=== PATIENT | male | born 1970 | race Caucasian/White ===

== ENCOUNTER 2020-07-26 14:40 | Outpatient (CLI) | payer OTHER, SELFPAY ==
--- NOTE | ~2020-07-26 | CT_ITS ---
EXAMINATION: XR abdomen/kub 1V, CT abdomen pelvis wo con DATE: 07/26/2020 15:12 INDICATION: Right kidney stone TECHNIQUE: 1. Low dose computed tomography (CT) of the abdomen and pelvis to evaluate for genitourinary stones w as performed without intravenous contrast. Automated exposure control and iterative reconstruction te chnique were employed. The dose-length product was 1120.49 mGy-cm. 2. A supine view of the abdomen was obtained on 2 radiographs. COMPARISON: None FINDINGS: Abdomen and pelvis CT: Multiple old healed posterior left rib fractures. Lung bases are clear. Heart size is normal. Atheros clerotic coronary artery calcifications and aortic valve calcification. Calcified left infrahilar lym ph node and a few scattered hepatic and splenic calcifications consistent with old granulomatous dise ase. Cholecystectomy clips at the gallbladder fossa. Likely embolization coils along the tail of the pancreas likely within the splenic artery. Pancreas is unremarkable. Bilateral adrenal glands are nor mal. 2 mm nonobstructing stone at the upper pole calyx of the normal left kidney. No left ureteral st ones or left-sided hydronephrosis. 10 x 6 x 6 mm stone at the junction of the proximal to mid right u reter with moderate right hydroureteronephrosis. There is an additional 1-2 mm stone in the immediate ly more proximal dilated right ureter. There are at least 5 additional stones in the right kidney the next largest measuring 4 mm at the lower pole. Bladder is normal. There is mild colonic diverticulos is with a sigmoid predominance. There is no adjacent inflammatory change to suggest diverticulitis. Small bowel and appendix are normal. No free intraperitoneal gas or fluid. No pathologically enlarged abdominal or pelvic lymphadenopathy. Mild lumbar and mild to moderate lower thoracic spondylosis. Abdomen radiograph(s): The 10 x 6 mm right ureteral stone is clearly visualized on the plain radiograph projecting near the tip of the right L4 transverse process. A few of the smaller stones are seen in the upper and lower r ight kidney IMPRESSION: 1. Bilateral nephrolithiasis with obstructing 10 x 6 mm right ureteral stone with moderate right hydr oureteronephrosis. Reviewed, dictated and finalized at location A. IMPRESSION: 1. Bilateral nephrolithiasis with obstructing 10 x 6 mm right ureteral stone wi th moderate right hydroureteronephrosis.
== END 2020-07-26 14:41 | disposition home or self-care (01) ==
PROVIDERS: PCP Family Medicine; Visit Provider Nurse Practitioner Adult Health
DX: N13.2 Hydronephrosis with renal and ureteral calculous obstruction (principal)
CPT/HCPCS: 74018; 74176

== ENCOUNTER 2020-08-03 00:31 | Outpatient (CLI) | payer OTHER, SELFPAY ==
[2020-08-03 20:23] LABS: SARS-CoV-2 RNA PCR Negative
== END 2020-08-03 00:32 | disposition home or self-care (01) ==
LOC: ANHCOVIDDT 00:32
PROVIDERS: PCP Family Medicine; Visit Provider Urology
DX: Z01.812 Encounter for preprocedural laboratory examination (principal); Z11.59 Encounter for screening for other viral diseases
CPT/HCPCS: 87635; C9803; U0003

== ENCOUNTER 2020-08-04 00:39 | Day surgery (SDC) | payer OTHER, SELFPAY ==
[2020-08-02 12:41] VITALS: BMI 34.9
[2020-08-04] VITALS (7 sets, daily range): BP systolic 118–137; BP diastolic 66–85; PULSE 61–72; RESP 14–18; TEMP 36.4–36.5; O2SAT 99–100
--- NOTE | ~2020-08-04 | XR_ITS ---
EXAMINATION: XR abdomen/kub 1V INDICATION: Right-sided kidney stone TECHNIQUE: Supine views of the abdomen were obtained on 2 radiographs. COMPARISON: 07/26/2020 FINDINGS: There is an approximately 12 mm right ureteral stone projecting just below the right L4 tra nsverse process. A subtle grouping of stones in the right kidney lower pole measuring up to 9 mm pers ists. Also seen is a 5 mm stone of the right kidney upper pole. Cholecystectomy clips are noted. A ca lcification projecting near the cholecystectomy clips is demonstrated to reflect a liver granuloma on the comparison CT. The bowel gas pattern is normal. IMPRESSION: 1. Stable right ureteral stone and right nephrolithiasis. Reviewed, dictated and finalized at location A.
--- NOTE | 2020-08-04 06:12 | ECG_ITS ---
Measurements Intervals [place] Rate: 65 P: 17 VA: 172 QRS: -5 QRSD: 112 T: 33 QT: 407 QTc: 426 Interpretive Statements SINUS RHYTHM INTRAVENTRICULAR CONDUCTION DELAY BORDERLINE ECG Electronically Signed On 08-04-2020 8:06:14 CDT by Sheldon Madison D.O.
[2020-08-04] MEDS: LACTATED RINGERS 1,000 ML 30 ML IV CONT (07:30)
--- NOTE | 2020-08-04 07:45 | WPDHPUPDATE1 ---
History and Physical Update Update Date/Time: 08/04/20 07:45 History and Physical has been reviewed, including an updated exam of the patient. There are NO changes in the patient's condition. Risks, benefits, and alternatives have been discussed and questions answered. Patient agrees to proceed with procedure. Right ureteral stone slightly difficult to see today due to bowel gas. May require cysto with reterograde, stent placement in addition to right ureteral eswl. Discussed with Jayson who agrees to proceed.
[2020-08-04 07:50] LABS: Prothrombin Time 12.8 Seconds (11.1-14.7)
[2020-08-04 07:51] LABS: Partial Thromboplastin Time 29.6 SECONDS (22.3-36.8)
[2020-08-04 07:54] LABS: Anion Gap 6 mmol/L (8-16); Blood Urea Nitrogen 20 mg/dL (9-20); Calcium 9.1 mg/dL (8.4-10.2); Carbon Dioxide 31 mmol/L (22-30); Chloride 104 mmol/L (98-107); Estimated CRCL calculation 126 ml/min; Estimated Glomerular Filt Rate > 60; Glucose 113 mg/dL (75-110); Potassium 4.1 mmol/L (3.4-5.0); Sodium 141 mmol/L (137-145)
--- NOTE | 2020-08-04 08:10 | WPDANESEPPF ---
Anes - Initial Pre Proc Eval Procedure: Operation Date: 08/04/20 08:30 Proposed Procedures p Right Ureteral Extracorporeal Shock Wave Lithotripsy with Possible Stent Placement - Rufino Eastman MD Date/Time: 08/04/20 08:10 Surgeon: Rufino Eastman MD Pre Op Diagnosis: right ureteral stone Patient Data Age: 50 Gender: M Height: 6 ft 3 in Weight: 127.01 kg Allergies Allergy/AdvReac Type Severity Reaction Status Date / Time No Known Allergies Allergy Mild Verified 08/02/20 12:43 Home Medications Medication Instructions Recorded Confirmed Type sertraline 100 mg tablet 100 mg PO DAILY #90 tablet 11/12/19 08/02/20 Rx aripiprazole 10 mg tablet 10 mg PO DAILY #90 tablet 06/08/20 08/02/20 Rx atorvastatin 80 mg tablet 80 mg PO DAILY #30 tablet 06/11/20 08/02/20 Rx sitagliptin 50 mg tablet 50 mg PO DAILY #30 tablet 06/11/20 08/02/20 Rx hydrocodone 5 mg-acetaminophen 325 1 tablet PO Q6H PRN #20 tablet 07/19/20 08/02/20 Rx mg tablet metformin 1,000 mg PO BID 08/02/20 08/02/20 History multivitamin 1 tablet PO DAILY 08/02/20 08/02/20 History glimepiride 2 mg tablet 2 mg PO QAM #90 tablet 08/03/20 Rx Laboratory Tests 08/04/20 08/04/20 07:28 07:28 PT 12.8 Seconds Seconds (11.1-14.7) INR 1.0 APTT 29.6 SECONDS SECONDS (22.3-36.8) Sodium 141 mmol/L mmol/L (137-145) Potassium 4.1 mmol/L mmol/L (3.4-5.0) Chloride 104 mmol/L mmol/L (98-107) Carbon Dioxide 31 mmol/L H mmol/L (22-30) Anion Gap 6 mmol/L L mmol/L (8-16) BUN 20 mg/dL mg/dL (9-20) Creatinine 0.90 mg/dL mg/dL (0.7-1.3) Estim Creat Clear Calc 126 ml/min ml/min Estimated GFR > 60 (59 - ) Glucose 113 mg/dL H mg/dL (75-110) Calcium 9.1 mg/dL mg/dL (8.4-10.2) Patient hx anesthesia problems: none Family hx anesthesia problems: none PMFSH Past Medical History Medical History Benign essential hypertension Bipolar affective, depress, part remis Mixed hyperlipidemia Nephrolithiasis Type 2 diabetes mellitus without complications Family History Family History Other Diabetes mellitus Family history of malignant neoplasm of urinary bladder Social History Social History Smoking status: Never smoker Second hand tobacco smoke exposure: No Alcohol intake: current Drinks per week: 6 Spiritual care concerns: No Anes - Eval Final PreProcedure Day of Procedure 08/04/20 08:10 Patient weight: obese Heart: regular rate and rhythm Lungs: clear to auscultation Airway: Mallampati scale class II Neurological: alert and oriented Last oral intake: >/= 8 hours ASA classification: III Emergent: no Anesthetic plan: proceed Anesthesia type and monitoring: general LMA and standard monitoring Informed Consent: The patient's anesthetic plan and its attendant risks and benefits were discussed with the patient/family/POA. Questions were solicited and answers provided to the satisfaction of the patient/family/POA.
[2020-08-04] MEDS: ceFAZolin 2 GM/D5W 50 ML 2 GM/50 ML BAG IVPB (08:30)
--- NOTE | 2020-08-04 09:09 | PM.PROC ---
Procedure Note - Detailed Date of procedure: 08/04/20 Pre-op diagnosis: right ureteral stone Post-op diagnosis: same Procedure performed: ESWL right ureteral calculus Description of procedure: patient is taken to the operative suite and correctly identified. Once anesthesia was obtained the stone was localized in both planes. Three thousand shocks were given to the stone. There appeared to be good fragmentation. Patient is taken recovery room stable condition. Given the standard post lithotripsy instructions will follow up in about 10 days with KUB. Anesthesia: GLMA Surgeon: Rufino Eastman MD Drains: No Packing: No Pathology: none sent Complications: No immediate complications Condition: stable Disposition: PACU
--- NOTE | 2020-08-04 09:36 | SUR.PHASEI ---
0940- blood glucose 117 at 0935. more awake.
[2020-08-04 09:37] LABS: Glucose Point of Care 117 (65-105)
--- NOTE | 2020-08-04 09:47 | SUR.PHASEI ---
0947- regarding initial skin assessment right flank with some redness to it. mild discomfort in the area.
== END 2020-08-04 10:30 | disposition home or self-care (01) ==
PROVIDERS: Anesthesiology; PCP Family Medicine; Visit Provider Urology
PROC: (CPT 50590; principal; 2020-08-04 08:30)
DX: N20.1 Calculus of ureter (principal); I10 Essential (primary) hypertension; E11.9 Type 2 diabetes mellitus without complications; Z79.84 Long term (current) use of oral hypoglycemic drugs; E78.2 Mixed hyperlipidemia; E66.9 Obesity, unspecified; Z68.35 Body mass index [BMI] 35.0-35.9, adult; F31.75 Bipolar disorder, in partial remission, most recent episode depressed; Z79.899 Other long term (current) drug therapy
CPT/HCPCS: 50590; 36415; 74018; 80048; 85610; 85730; 87635; 93005; C9803; J0131; J0690; J2250; J2405; J2704; J3010; J7120; U0003

== ENCOUNTER → 2020-08-14 15:34 | Outpatient (CLI) | payer OTHER, SELFPAY ==
--- NOTE | ~2020-08-14 | XR_ITS ---
XR abdomen/kub 1V 08/14/2020 16:06 Indication: Right kidney stone Procedure: KUB Comparison: KUB dated 08/04/[address] dated 07/26/2020 Findings: There is a punctate lower pole stone in the right kidney. There are cholecystectomy clips. There is calcified granuloma of the liver adjacent to the cholecystectomy clips. There are surgical c oils in the left upper abdomen. Nonobstructive bowel gas pattern. Mild lumbar spondylosis. Impression: 1: Right nephrolithiasis. Reviewed, dictated and finalized at location B. Impression: 1: Right nephrolithiasis.
== END ==
PROVIDERS: PCP Family Medicine; Visit Provider Nurse Practitioner Adult Health
DX: N20.0 Calculus of kidney (principal)
CPT/HCPCS: 74018

== ENCOUNTER → 2020-08-22 14:03 | Outpatient (CLI) | payer OTHER, SELFPAY ==
--- NOTE | ~2020-08-22 | XR_ITS ---
XR abdomen/kub 1V 08/22/2020 14:30 Indication: Ureteral stones Procedure: KUB Comparison: 07/26/2020 Findings: There are faint right renal stones. No definite ureteral stone. There are cholecystectomy c lips. There is calcified granuloma of the liver parenchyma at the level of the cholecystectomy clips. Mild lumbar spondylosis. Bowel pattern nonobstructive. Surgical coils in the left upper abdomen. Impression: 1: Right nephrolithiasis. Reviewed, dictated and finalized at location A. Impression: 1: Right nephrolithiasis.
--- NOTE | ~2020-08-22 | CT_ITS ---
EXAMINATION: CT abdomen pelvis wo con DATE: 08/22/2020 14:30 INDICATION: Right ureteral stone, difficulty urinating post lithotripsy TECHNIQUE: Computed tomography (CT) of the abdomen and pelvis was performed without intravenous contr ast. The dose-length product (DLP) was 1094.75 mGy-cm. Automated exposure control and iterative recon struction technique were employed. COMPARISON: 07/26/2020 FINDINGS: The lung bases are clear. The heart size is normal. The gallbladder is surgically absent. P unctate calcifications in otherwise normal appearing liver and spleen likely represent healed granulo matous disease. Embolization coils are again noted along the tail of the pancreas, likely within the splenic artery. The pancreas and adrenal glands are normal. The left kidney is unremarkable. There is been interval treatment of the previously described right ureteral stones. No stones or stone fragme nts are identified in the right ureter or the bladder. Hydroureteronephrosis has resolved. There are nonobstructing stones of the right kidney which measure up to 3 mm. No pathologically enlarged abdomi nal or pelvic lymph nodes are identified. There is no free intraperitoneal gas or evidence of bowel o bstruction. Colonic diverticulosis is present without evidence of diverticulitis. Fat-containing ingu inal hernias are noted. Also seen is a tiny fat-containing supraumbilical hernia. There is mild lumba r spondylosis. IMPRESSION: 1. Interval right-sided lithotripsy with resolution of previously described hydroureteronephrosis and no retained stone fragments in the right ureter or bladder. 2. Nonobstructing right nephrolithiasis. Reviewed, dictated and finalized at location A. IMPRESSION: 1. Interval right-sided lithotripsy with resolution of previously described hyd roureteronephrosis and no retained stone fragments in the right ureter or bladd er. 2. Nonobstructing right nephrolithiasis.
== END ==
PROVIDERS: PCP Family Medicine; Visit Provider Urology
DX: N20.0 Calculus of kidney (principal); Z98.890 Other specified postprocedural states
CPT/HCPCS: 74018; 74176

== ENCOUNTER 2022-02-26 07:43 | Outpatient (RCR) | payer OTHER, SELFPAY ==
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
== END 2022-04-23 17:00 | disposition home or self-care (01) ==
LOC: CHSPT 07:43
PROVIDERS: PCP Family Medicine
DX: M48.062 Spinal stenosis, lumbar region with neurogenic claudication (principal)
CPT/HCPCS: 97014; 97110; 97161; 97530; G0283

== ENCOUNTER 2022-06-18 08:55 | Outpatient (RCR) | payer OTHER, SELFPAY ==
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
--- NOTE | 2022-09-17 08:15 | PCPTNOTE ---
mr. vazquez has not been to therapy in over a month. as of this date he will be dc'd from skilled PT services. all progress towards goals will be taken from his most recent evaluation/note. WIL
== END 2022-07-10 23:59 | disposition home or self-care (01) ==
LOC: CHSPT 08:55
PROVIDERS: Visit Provider Physician Assistant Medical
DX: M25.512 Pain in left shoulder (principal); R20.2 Paresthesia of skin
CPT/HCPCS: 97012; 97014; 97110; 97140; 97161; G0283

== ENCOUNTER 2022-07-26 08:00 | Outpatient (CLI) | payer OTHER, SELFPAY ==
--- NOTE | ~2022-07-26 | MR_ITS ---
EXAMINATION: MR cervical spine wo con DATE: 07/26/2022 08:59 INDICATION: Cervical radiculopathy. TECHNIQUE: Magnetic resonance imaging (MRI) of the cervical spine was performed without intravenous c ontrast. Sequences included sagittal T2-weighted FSE, sagittal T2-weighted FS FSE, sagittal T1-weight ed FSE, axial MERGE, and axial T2-weighted FSE. COMPARISON: None FINDINGS: There is 4 degrees dextrocurvature of cervicothoracic spine. There is hypolordosis of cervi florina spine. Vertebral body heights are normal. There is mildly decreased disc height from C3-C4 to C6- C7. Osseous central spinal canal is developmentally small in the cervical spine. The spinal cord sign al intensity is normal. The following disc levels are specifically discussed: C2-C3: The disc does not extend beyond the endplate margin. There is no uncovertebral joint osteoarth ritis. There is mild bilateral facet joint osteoarthritis. There is no neural foraminal stenosis. The re is no central canal stenosis. C3-C4: The disc is bulging. There is mild bilateral uncovertebral joint osteoarthritis. There is mode rate bilateral facet joint osteoarthritis. There is mild bilateral neural foraminal stenosis. There i s mild central canal stenosis with ventral indentation of the spinal cord. C4-C5: The disc is bulging. There is moderate bilateral uncovertebral joint osteoarthritis. There is mild bilateral facet joint osteoarthritis. There is mild right and moderate left neural foraminal scot nosis. There is moderate central canal stenosis with ventral and dorsal indentation of the spinal cor d. C5-C6: The disc is bulging. There is moderate bilateral uncovertebral joint osteoarthritis. There is no facet joint osteoarthritis. There is mild bilateral neural foraminal stenosis. There is moderate c entral canal stenosis with ventral and dorsal indentation of the spinal cord. C6-C7: The disc is bulging with superimposed right central extrusion. There is moderate bilateral unc overtebral joint osteoarthritis. There is moderate bilateral facet joint osteoarthritis. There is mod erate bilateral neural foraminal stenosis. There is moderate central canal stenosis with ventral and dorsal indentation of the spinal cord. C7-T1: The disc does not extend beyond the endplate margin. There is mild right uncovertebral joint o steoarthritis. There is moderate right and severe left facet joint osteoarthritis. There is mild bila teral neural foraminal stenosis. There is no central canal stenosis. IMPRESSION: 1. Moderate cervical spondylosis. Reviewed, dictated and finalized at location A.
== END 2022-07-26 08:01 | disposition home or self-care (01) ==
PROVIDERS: PCP Family Medicine; Visit Provider Physician Assistant Medical
DX: R20.2 Paresthesia of skin (principal); M79.609 Pain in unspecified limb; M47.812 Spondylosis without myelopathy or radiculopathy, cervical region
CPT/HCPCS: 72141

== ENCOUNTER 2022-09-20 12:34 | Outpatient (CLI) | payer OTHER, SELFPAY ==
--- NOTE | ~2022-09-20 | XR_ITS ---
EXAMINATION: XR cervical spine 4-5V DATE: 09/20/2022 13:20 INDICATION: Other spondylosis with radiculopathy, cervical region. TECHNIQUE: 5 views of cervical spine including flexion and extension views were obtained. COMPARISON: CT cervical spine 09/20/2022 FINDINGS: There is 9 degrees levocurvature of cervicothoracic spine. Vertebral body heights are magdalene l. There is mildly decreased disc height from C3-C4 through C6-C7. There is developmental osseous regina tral spinal canal stenosis and cervical spine. There is no abnormal motion with flexion or extension. There is moderate bilateral uncovertebral joint osteoarthritis from C3-C4 through C6-C7. There is mi ld central canal stenosis at C3-C4 and moderate central canal stenosis at C4-C5, C5-C6, and C6-C7. Th ere is multilevel mild facet joint osteoarthritis. No prevertebral soft tissue swelling. IMPRESSION: 1. Moderate cervical spondylosis. Reviewed, dictated and finalized at location A.
--- NOTE | ~2022-09-20 | CT_ITS ---
EXAMINATION: CT cervical spine wo con DATE: 09/20/2022 13:07 INDICATION: Neck pain. Numbness in the fingers. TECHNIQUE: Computed tomography (CT) of the cervical spine was performed without intravenous contrast. Automated exposure control and iterative reconstruction technique were employed. The dose-length pro duct was 570.53 mGy-cm. COMPARISON: Cervical spine MRI 07/26/2022 FINDINGS: There is hypolordosis of cervical spine. There is 4 degrees dextrocurvature of cervicothora cic spine. Osseous central spinal canal is developmentally small in cervical spine. Vertebral body he ights are normal. There is mildly decreased disc height from C3-C4 through C6-C7. The following disc levels are specifically discussed: C2-C3: There is mild bilateral uncovertebral joint osteoarthritis. There is mild bilateral facet join t osteoarthritis. There is no neural foraminal stenosis. There is no central canal stenosis. C3-C4: There is moderate bilateral uncovertebral joint osteoarthritis. There is mild bilateral facet joint osteoarthritis. There is mild bilateral neural foraminal stenosis. There is mild central canal stenosis. C4-C5: There is moderate bilateral uncovertebral joint osteoarthritis. There is no facet joint osteoa rthritis. There is mild right and moderate left neural foraminal stenosis. There is moderate central canal stenosis. C5-C6: There is moderate bilateral uncovertebral joint osteoarthritis. There is mild bilateral facet joint osteoarthritis. There is mild bilateral neural foraminal stenosis. There is moderate central ca nal stenosis. C6-C7: There is moderate bilateral uncovertebral joint osteoarthritis. There is moderate bilateral fa cet joint osteoarthritis. There is mild bilateral neural foraminal stenosis. There is moderate centra l canal stenosis. C7-T1: There is mild right uncovertebral joint osteoarthritis. There is severe bilateral facet joint osteoarthritis. There is mild bilateral neural foraminal stenosis. There is no central canal stenosis . IMPRESSION: 1. Moderate cervical spondylosis. Reviewed, dictated and finalized at location A.
== END 2022-09-20 12:35 | disposition home or self-care (01) ==
PROVIDERS: PCP Family Medicine; Visit Provider Neurological Surgery
DX: M47.22 Other spondylosis with radiculopathy, cervical region (principal)
CPT/HCPCS: 72050; 72125

== ENCOUNTER 2022-10-21 10:26 | Outpatient (CLI) | payer OTHER, SELFPAY ==
--- NOTE | ~2022-10-21 | MR_ITS ---
EXAMINATION: MR cervical spine wo con DATE: 10/21/2022 11:11 INDICATION: Neck and hand numbness. Weakness. TECHNIQUE: Magnetic resonance imaging (MRI) of the cervical spine was performed without intravenous c ontrast. Sequences included sagittal T2-weighted FSE, sagittal T2-weighted FS FSE, sagittal T1-weight ed FSE, axial MERGE, and axial T2-weighted FSE. COMPARISON: Cervical spine MRI 07/26/2022 FINDINGS: Bone alignment is normal. Vertebral body heights are normal. There is mildly decreased disc height from C3-C4 through C6-C7. The spinal cord signal intensity is normal. The following disc leve ls are specifically discussed: C2-C3: There is a right central protrusion. There is mild bilateral uncovertebral joint osteoarthriti s. There is mild bilateral facet joint osteoarthritis. There is no neural foraminal stenosis. There i s mild central canal stenosis. C3-C4: The disc is bulging. There is moderate right and mild left uncovertebral joint osteoarthritis. There is mild right and moderate left facet joint osteoarthritis. There is mild bilateral neural for aminal stenosis. There is mild central canal stenosis. C4-C5: The disc is bulging. There is moderate bilateral uncovertebral joint osteoarthritis. There is mild bilateral facet joint osteoarthritis. There is moderate bilateral neural foraminal stenosis. The re is moderate central canal stenosis with ventral and dorsal indentation of the spinal cord. C5-C6: The disc is bulging. There is moderate bilateral uncovertebral joint osteoarthritis. There is no facet joint osteoarthritis. There is mild bilateral neural foraminal stenosis. There is moderate c entral canal stenosis with ventral and dorsal indentation of the spinal cord. C6-C7: The disc is bulging with superimposed right central extrusion. There is mild bilateral uncover tebral joint osteoarthritis. There is mild bilateral facet joint osteoarthritis. There is mild bilate ral neural foraminal stenosis. There is moderate central canal stenosis with ventral and dorsal inden tation of spinal cord. C7-T1: The disc does not extend beyond the endplate margin. There is no uncovertebral joint osteoarth ritis. There is severe bilateral facet joint osteoarthritis. There is mild bilateral neural foraminal stenosis. There is no central canal stenosis. IMPRESSION: 1. Moderate cervical spondylosis, stable from 07/26/2022. Reviewed, dictated and finalized at location A. Y DIPPER
== END 2022-10-21 10:27 | disposition home or self-care (01) ==
PROVIDERS: PCP Family Medicine; Visit Provider Neurological Surgery
DX: R20.2 Paresthesia of skin (principal); M79.609 Pain in unspecified limb; M47.22 Other spondylosis with radiculopathy, cervical region
CPT/HCPCS: 72141

== ENCOUNTER 2023-02-24 14:46 | Outpatient (RCR) | payer OTHER, SELFPAY ==
--- NOTE | 2023-02-24 15:34 | PTOPEVAL1 ---
Assessment and note entered by Dayo Esposito Evaluation Information Assessment Status Evaluation Diagnosis s/p cervical foraminotoamy and microdiscectomy Onset 01/06/23 Subjective Information Pt. reports that he underwent surgery in January. He states that before surgery is was noticing developing weakness and numbness in the left arm. He underwent surgery about 5-6 months after is onset of symptoms. He states he currently cannot push with the left arm. He notices difficulty picking up small objects and cannot get objects out of his wallet. He states the numbness in the left arm still wakes him at night frquently. He reports that he is currently doing no specific exercise. 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 He states that prior to his onset he was having no difficulty. He reports that he has been out of work since surgery. His goal is to improve strength in the left arm. Reported Pain Level Pain Score 0: Self Report Assessment PT Clinical Summary Pt. is a 52 year old male who enter the clinic 7 weeks post c-spine surgery. He is right hand dominant and presents with left u.e. weakness, impaired postural awareness and occasional pain. Continued skilled PT is indicated in order to improve these areas to allow the pt. to be able to return to work related duties and all IADL's without limitation. Plan of Care Interventions Electrical Stimulation,Hot Pack/Cold Pack,Manual Therapy,Neuro Re-education,Patient/Caregiver Educati,Therapeutic Activities,Therapeutic Exercise,Self-Care/Home Management PT Services Indicated Yes Treatment Frequency and 2x/week x 10 visits Duration These treatments will address the objective and functional deficits as defined above. The patient will be advanced safely and appropriately in order for the patient to progress towards his/her prior level of function. Additional exercises will be introduced and as well as a comprehensive home exercise program upon discharge, if needed, ?to ensure carryover of functional gains achieved in the clinic. This treatment plan has been reviewed and agreement upon by the patient.
== END 2023-03-05 09:53 | disposition home or self-care (01) ==
LOC: CHSPT 14:46
PROVIDERS: Visit Provider Neurological Surgery
DX: Z48.89 Encounter for other specified surgical aftercare (principal)
CPT/HCPCS: 97110; 97112; 97161; 97530

== ENCOUNTER 2023-06-18 08:40 | Outpatient (CLI) | payer OTHER, SELFPAY ==
--- NOTE | ~2023-06-18 | XR_ITS ---
Supine and upright views of the abdomen Clinical history: Right flank pain COMPARISON: 08/22/2020 Findings: Bowel gas pattern is nonspecific. No evidence for obstruction or free air. 3 renal stones a re present, measuring up to 1.3 cm at the right lower pole. Probable smaller left renal stones presen t, measuring up to 4 mm. Additional radiodensity present in the right upper quadrant adjacent to chol ecystectomy clips, which is stable from prior exam. Osseous structures are intact. Impression: Bilateral nephrolithiasis, as detailed above. Right ureteral stone seen on CT performed concurrently is not clearly visualized radiographically. Reviewed, dictated and finalized at location . Impression: Bilateral nephrolithiasis, as detailed above. Right ureteral stone seen on CT performed concurrently is not clearly visualize d radiographically.
--- NOTE | ~2023-06-18 | CT_ITS ---
EXAMINATION: CT abdomen pelvis wo con DATE: 06/18/2023 08:55 INDICATION: Right flank pain. Hematuria. History kidney stones. TECHNIQUE: Computed tomography (CT) of the abdomen and pelvis was performed without intravenous contr ast. Automated exposure control and iterative reconstruction technique were employed. Exam dose: 151 6.61 mGy-cm total exam DLP. COMPARISON: 06/18/2023 KUB 08/22/2020 CT abdomen pelvis FINDINGS: The lung bases are clear. Heart size is normal. Coronary artery calcification. There is florina cification in the region of the aortic valve. No pericardial or pleural effusion. Status post cholecystectomy. There is a probable calcified hepatic granuloma and there are multiple b enign splenic calcifications likely due to old granulomatous disease. No hepatic, splenic, pancreatic, and adrenal space-occupying mass lesion is detected. No bile duct or pancreatic duct dilatation. Embolization coils are noted in the left upper quadrant. The pancreatic tail. No renal mass lesion is evident on this limited noncontrast examination. There is bilateral nonobstru ctive nephrolithiasis, most prominent in the lower pole of the right kidney, measuring up to approxim ately 10.5 mm width, 23 mm overall length. There is a small pinpoint nonobstructing upper pole right renal calculus. There is an approximately 5 x 5.6 mm nonobstructing mid left renal calculus. There is an approximately 4 mm calculus of the right ureter at approximately L5-S1 level with mild ri ght hydroureteronephrosis and some right peripelvic and periureteral stranding. The urinary bladder and prostate gland are unremarkable. There is atherosclerotic calcification but normal caliber of the abdominal aorta and iliac arteries. No intraperitoneal or retroperitoneal or pelvic mass lesion or adenopathy or ascites is evident. Diverticulosis of the left and right colon; no CT evidence of diverticulitis. Normal appendix. No bow el obstruction, bowel wall thickening, pneumatosis or intraperitoneal free air is detected. Small bilateral fat-containing inguinal hernias, left larger than right. Very small fat-containing um bilical hernia. Healed old posterior left rib fractures. Degenerative changes of the thoracic and lumbar spine including prominent lumbar spurs. No suspicious osteolytic or osteoblastic lesions are noted. IMPRESSION: Approximately 4 mm right ureteral calculus at approximately L5-S1 level with mild proxim al right hydroureteronephrosis Bilateral nephrolithiasis, right greater than left Status post cholecystectomy Diverticulosis of the colon; no evidence of diverticulitis Normal appendix Reviewed and finalized at Location A. Reviewed, dictated and finalized at location B. IMPRESSION: Approximately 4 mm right ureteral calculus at approximately L5-S1 level with mild proximal right hydroureteronephrosis Bilateral nephrolithiasis, right greater than left Status post cholecystectomy Diverticulosis of the colon; no evidence of diverticulitis Normal appendix Reviewed and finalized at Location A.
== END 2023-06-18 08:41 | disposition home or self-care (01) ==
PROVIDERS: PCP Family Medicine; Visit Provider Nurse Practitioner
DX: R10.9 Unspecified abdominal pain (principal); N20.0 Calculus of kidney; N20.1 Calculus of ureter; K57.90 Diverticulosis of intestine, part unspecified, without perforation or abscess without bleeding; Z90.49 Acquired absence of other specified parts of digestive tract
CPT/HCPCS: 74018; 74176

== ENCOUNTER 2023-06-27 12:46 | Outpatient (CLI) | payer OTHER, SELFPAY ==
--- NOTE | 2023-06-27 13:07 | ECG_ITS ---
Measurements Intervals Beggs Rate: 65 P: 37 WV: 196 QRS: -3 QRSD: 112 T: 43 QT: 401 QTc: 419 Interpretive Statements SINUS RHYTHM INTRAVENTRICULAR CONDUCTION DELAY BORDERLINE ECG COMPARED TO ECG 08/04/2020 07:37:35 NO SIGNIFICANT CHANGES Electronically Signed On 06-27-2023 20:31:21 CDT by Sheldon Madison D.O.
== END 2023-06-27 12:47 | disposition home or self-care (01) ==
LOC: CHSLAB 12:49
PROVIDERS: PCP Family Medicine; Visit Provider Urology
DX: Z01.818 Encounter for other preprocedural examination (principal); N20.1 Calculus of ureter; E78.2 Mixed hyperlipidemia; R94.31 Abnormal electrocardiogram [ECG] [EKG]
CPT/HCPCS: 87086; 93005

== ENCOUNTER 2023-07-01 00:18 | Day surgery (SDC) | payer OTHER, SELFPAY ==
[2023-06-27 10:44] VITALS: BMI 34.9
--- NOTE | 2023-06-27 10:48 | PC.NURSE ---
Report to the Outpatient Waiting Room, entrance under the green pavilion located off [facility], at time 6:00 on date 07/01/23. Planned Procedure Time: 7:30. Time changes happen often and if your time is changed the preop area will call you the afternoon before. - You and your visitor will be asked to self-screen and do not enter if you have any COVID symptoms. - A mask is optional within the hospital at this time. Patients may have clear liquids (water, carbonated beverages, clear teas, apple juice) until 3 hours prior to surgery with a maximum of 20 ounces. - No food from midnight until time of surgery Take the following medications with a SIP of water the morning of surgery: ARIPIPRAZOLE, SERTRALINE DO NOT STOP ANY OF YOUR OTHER PRESCRIPTION MEDICATIONS PRIOR TO SURGERY ?EXCEPT THE FOLLOWING Medications to discontinue per physician: VITAMINS Date to take last dose: 06/27/23 Please no make-up, nail kyrgyz, hairspray, perfume, deodorant, or body powder the day of surgery. No jewelry (including any body piercings) or valuables the day of surgery, leave them at home. Please take a shower or bath the night before, or the morning of, surgery with an antibacterial soap. Wear comfortable, loose fitting clothing. - Jewelry must be removed prior to entering the operating room. Rings and piercings that are not removed may be cut off. - The hospital will not accept responsibility for valuables. - Please leave all valuables, including medications, at home the day of surgery. If you are going home after surgery, a licensed tow truck driver must drive you home. - NO public transportation without another adult if you receive anesthesia. - We recommend that an adult stay with you for 24 hours following discharge. - We also recommend that you do not drive, make important decision, drink alcoholic beverages, or take any drugs that were not prescribed by your health care provider for at least 24 hours after your discharge time. Follow any additional instructions given to you from your surgeon. If you or anyone in your household have experienced Covid symptoms in the past week, please notify your surgeon or the nurse liaison at the phone number below for possible testing. Telephone instructions given to PT - KELVIN BECKER and asked if any additional questions and then verbalized understanding. Patient advised to call surgeon office or pre surgery nurse liaison [phone] if any additional questions.
--- NOTE | 2023-06-30 11:35 | WPDANESEPPF ---
Anes - Initial Pre Proc Eval Procedure: Operation Date: 07/01/23 07:30 Proposed Procedures p Cystoscopy, Right Ureteroscopy, Right Stone Extraction, Possible Right Stent Placement, Possible Retrograde Pyelogram, Possible Holmium Laser Lithotripsy - Rufino Eastman MD Date/Time: 06/30/23 11:35 Surgeon: Rufino Eastman MD Pre Op Diagnosis: Rt Ureteral Stone Patient Data Age: 52 Gender: M Height: 1.91 m Weight: 127 kg Allergies Allergy/AdvReac Type Severity Reaction Status Date / Time No Known Allergies Allergy Mild Verified 07/01/23 06:23 Home Medications Medication Instructions Recorded Confirmed Type multivitamin 1 tablet PO DAILY 08/02/20 07/01/23 History tamsulosin 0.4 mg capsule 0.4 mg PO DAILY 08/29/22 07/01/23 History metformin 1,000 mg tablet 1,000 mg PO BID #180 tabs 12/22/22 07/01/23 Rx gabapentin 300 mg capsule 300 mg PO QHS #30 caps 02/16/23 07/01/23 Rx sertraline 100 mg tablet 100 mg PO DAILY #90 tabs 02/23/23 07/01/23 Rx glimepiride 2 mg tablet See Rx Instructions .Route 03/20/23 07/01/23 Rx .COMPLEX #135 tabs atorvastatin 80 mg tablet 80 mg PO DAILY #90 tabs 03/22/23 07/01/23 Rx aripiprazole 10 mg tablet 10 mg PO DAILY #90 tabs 06/16/23 07/01/23 Rx Patient hx anesthesia problems: none Family hx anesthesia problems: none Results Review: All pre-operative results and documents have been reviewed as part of the pre-operative evaluation. [facility] Past Medical History Medical History (Updated 07/01/23 @ 06:58 by Moe Barboza DO) Anxiety Bipolar affective, depress, part remis Mixed hyperlipidemia Nephrolithiasis Paresthesia and pain of left extremity Ruptured spleen Type 2 diabetes mellitus without complications Umbilical hernia Surgical History Surgical History (Updated 06/30/23 @ 11:36 by Moe Barboza DO) H/O arthroscopic knee surgery H/O hernia repair History of cholecystectomy Family History Family History Mother Dementia Arthritis Father Diabetes mellitus Bladder cancer Grandparent Leukemia Heart disease Other Family history of malignant neoplasm of urinary bladder Social History Social History (Updated 06/17/23 @ 08:20 by Luba Maldonado [facility]) Smoking status: Never smoker Tobacco type: cigars Second hand tobacco smoke exposure: No Additional smoking assessment comments: rare; smokes a cigar now and then (has never smoked cigarettes) Alcohol intake: current Drinks per week: 3 Substance use: never Substance use type: does not use Lack of Transportation: No Lack of Food: Never True Current Housing: I Have Housing Concerned About Future Housing: No Difficulty Paying Gas/Electric Bills: No Difficulty Paying for Meds: No Currently Unemployed: No Education: Associate Degree Difficulty w/ Childcare or Family Care: No Living arrangements: with family Occupation/Education: occupation Gender identity (if verbalized by the patient): Male Sexual Orientation (if Verbalized by the Patient): Straight or Heterosexual Spiritual care concerns: No Agree to blood products: Yes Anes - Eval Final PreProcedure Day of Procedure 06/30/23 11:35 Patient weight: obese Heart: regular rate and rhythm Lungs: clear to auscultation Airway: Mallampati scale class II Neurological: alert and oriented Last oral intake: >/= 8 hours ASA classification: III Emergent: no Anesthetic plan: proceed Anesthesia type and monitoring: general LMA and standard monitoring Results Review: All pre-operative results and documents have been reviewed as part of the pre-operative evaluation. Informed Consent: The patient's anesthetic plan and its attendant risks and benefits were discussed with the patient/family/POA. Questions were solicited and answers provided to the satisfaction of the patient/family/POA.
[2023-07-01] VITALS (7 sets, daily range): BP systolic 105–130; BP diastolic 62–77; PULSE 46–61; RESP 11–16; TEMP 36.4–36.6; O2SAT 95–100
--- NOTE | ~2023-07-01 | XR_ITS ---
EXAMINATION: XR retrograde pyelo w/stent RT DATE: 07/01/2023 08:05 INDICATION: Right renal stone extraction and stent placement TECHNIQUE: 5 fluoroscopic images of the abdomen and pelvis were obtained during procedure performed fawad Eastman. Radiologist was not present for the imaging or procedure. The amount of fluoroscopy t mariel used during this procedure was 0.3 minutes. COMPARISON: 06/18/2023 FINDINGS: Cluster of stones seen at the lower pole of the right kidney on the radiology aide images. The dista l right ureteral stone is unable to be definitively identified. Subsequent images demonstrate cannula tion and retrograde contrast injection into the right ureter demonstrating mild right hydroureteronep hrosis. Final images demonstrate placement of a right internal ureteral stent with loops formed in th e right renal pelvis. IMPRESSION: 1. Fluoroscopy utilized during reported right ureteral stone extraction and stent placement. See proc edure note for further detail. Reviewed, dictated and finalized at location L. IMPRESSION: 1. Fluoroscopy utilized during reported right ureteral stone extraction and scot nt placement. See procedure note for further detail.
[2023-07-01] MEDS: LACTATED RINGERS 1,000 ML 30 ML IV CONT (06:42)
[2023-07-01 06:48] LABS: Glucose Point of Care 112 mg/dl (65-105)
--- NOTE | 2023-07-01 07:30 | PM.IMHP ---
H&P: HPI History of Present Illness Date/Time: 07/01/23 07:30 Chief Complaint: right ureteral calculus Narrative: 52 year old male with a 4mm right distal ureteral calculus who has failed conservative management. Here for treatment. Review of Systems Review of Systems: All systems reviewed & are unremarkable except as noted in HPI and below PMFSH Past Medical History Medical History Anxiety Bipolar affective, depress, part remis Mixed hyperlipidemia Nephrolithiasis Paresthesia and pain of left extremity Ruptured spleen Type 2 diabetes mellitus without complications Umbilical hernia Surgical History Surgical History H/O arthroscopic knee surgery H/O hernia repair History of cholecystectomy Family History Family History Mother Dementia Arthritis Father Diabetes mellitus Bladder cancer Grandparent Leukemia Heart disease Other Family history of malignant neoplasm of urinary bladder Social History Social History Smoking status: Never smoker Tobacco type: cigars Second hand tobacco smoke exposure: No Additional smoking assessment comments: rare; smokes a cigar now and then (has never smoked cigarettes) Alcohol intake: current Drinks per week: 3 Substance use: never Substance use type: does not use Lack of Transportation: No Lack of Food: Never True Current Housing: I Have Housing Concerned About Future Housing: No Difficulty Paying Gas/Electric Bills: No Difficulty Paying for Meds: No Currently Unemployed: No Education: Associate Degree Difficulty w/ Childcare or Family Care: No Living arrangements: with family Occupation/Education: occupation Gender identity (if verbalized by the patient): Male Sexual Orientation (if Verbalized by the Patient): Straight or Heterosexual Spiritual care concerns: No Agree to blood products: Yes Meds Home Medications and Allergies Home Medications Medication Instructions Recorded Confirmed Type multivitamin 1 tablet PO DAILY 08/02/20 07/01/23 History tamsulosin 0.4 mg capsule 0.4 mg PO DAILY 08/29/22 07/01/23 History metformin 1,000 mg tablet 1,000 mg PO BID #180 tabs 12/22/22 07/01/23 Rx gabapentin 300 mg capsule 300 mg PO QHS #30 caps 02/16/23 07/01/23 Rx sertraline 100 mg tablet 100 mg PO DAILY #90 tabs 02/23/23 07/01/23 Rx glimepiride 2 mg tablet See Rx Instructions .Route 03/20/23 07/01/23 Rx .COMPLEX #135 tabs atorvastatin 80 mg tablet 80 mg PO DAILY #90 tabs 03/22/23 07/01/23 Rx aripiprazole 10 mg tablet 10 mg PO DAILY #90 tabs 06/16/23 07/01/23 Rx Allergies Allergy/AdvReac Type Severity Reaction Status Date / Time No Known Allergies Allergy Mild Verified 07/01/23 06:23 Vital Signs Vital Signs - 24 hr 07/01/23 06:14 Temperature 36.6 C Pulse Rate 61 Respiratory Rate 16 Blood Pressure 126/68 Pulse Oximetry 99 Oxygen Delivery Room Air Exam Const: General: cooperative and comfortable Eyes: General: appearance normal, both eyes and all related structures Chest: Chest palpation & inspection: normal inspection of the chest Resp: Effort & Inspection: normal respiratory effort Cardio: Rate: regular rate Rhythm: regular rhythm Assessment and Plan Assessment and plan (1) Right ureteral calculus: Code(s): N20.1 - Calculus of ureter Status: Acute Assessment and Plan: cystoscopy, right retrograde, right ureteroscopy with stone extraction, possible laser, stent placement.
--- NOTE | 2023-07-01 07:33 | WPDHPUPDATE1 ---
History and Physical Update Update Date/Time: 07/01/23 07:33 History and Physical has been reviewed, including an updated exam of the patient. There are NO changes in the patient's condition. Risks, benefits, and alternatives have been discussed and questions answered. Patient agrees to proceed with procedure. Proceed with cystoscopy, right retrograde, right ureteroscopy with stone extraction, possible laser, stent placement.
[2023-07-01] MEDS: ceFAZolin 3 GM/D5W 100 ML 100 ML IVPB (07:38)
[2023-07-01] MEDS: LIDOCAINE HCL 2% GEL UROJET 10 ML PKG MUCOUS MEM (07:54)
--- NOTE | 2023-07-01 08:05 | P.OP_ITS ---
Procedure Note - Detailed Date of Procedure 07/01/23 Pre-op Diagnosis Rt Ureteral Stone Post-op Diagnosis Same Procedure Performed Cystoscopy, right retrograde pyelogram, right ureteroscopy with stone extraction, right ureteral stent placement 4.8 German contour Surgeon Rufino Eastman MD Anesthesia General Description of Procedure Patient is taken to the operative suite correctly identified. Once anesthesia was obtained was placed in dorsal lithotomy position and prepped and draped usual sterile fashion. Twenty-two German scope inserted the bladder. There is no tumors noted. He does have somewhat of an elevated median bar. Both ureteral orifices normal anatomic position. The right ureteral orifice was cannulated with a guidewire. I dilated the orifice with an 8/10 dilator. Rigid ureteral scope was then inserted. Stone was visualized. Skate basket was used to retrieve the stone. It broke into a couple pieces these were sent together. Reinspection revealed no residual ureteral stones. Pyelogram was then performed to confirm placement of the stent. 4.8 German contour stent was then placed with the proximal end coiled in the renal pelvis and the distal in the bladder. Bladder was drained. 2% viscous lidocaine was inserted into the urethra. Patient is taken recovery stable condition. He has quite a bit of stone burden in the right lower pole. We may decide whether to proceed with lithotripsy versus PCNL. If he decides to do lithotripsy will plan on leaving the stent in. Please send a copy of this op note to my office Estimated Blood Loss 0 Drains Yes Packing No Pathology Yes Complications No immediate complications Condition Stable Disposition PACU
[2023-07-01 08:15] LABS: Glucose Point of Care 133 mg/dl (65-105)
--- NOTE | 2023-07-01 08:35 | SUR.PHASEI ---
0833: Simple mask removed.
== END 2023-07-01 09:53 | disposition home or self-care (01) ==
PROVIDERS: PCP Family Medicine; Visit Provider Urology
PROC: (CPT 52352; principal; 2023-07-01 07:30)
DX: N20.1 Calculus of ureter (principal); E78.2 Mixed hyperlipidemia; E11.9 Type 2 diabetes mellitus without complications; F41.9 Anxiety disorder, unspecified; F31.75 Bipolar disorder, in partial remission, most recent episode depressed; Z79.84 Long term (current) use of oral hypoglycemic drugs; Z72.0 Tobacco use; E66.9 Obesity, unspecified; Z68.35 Body mass index [BMI] 35.0-35.9, adult
CPT/HCPCS: 52332; 52352; 74420; 82365; 82948; 88300; C1758; C1769; C2617; J0690; J1100; J2250; J2405; J2704; J3010; J7120; Q9966

== ENCOUNTER 2023-08-01 12:51 | Outpatient (CLI) | payer OTHER, SELFPAY ==
--- NOTE | ~2023-08-01 | XR_ITS ---
EXAMINATION: XR abdomen/kub 1V DATE: 08/01/2023 13:24 INDICATION: Kidney stone. TECHNIQUE: A supine view of the abdomen on 2 radiographs was obtained. COMPARISON: CT abdomen and pelvis 06/18/2023, abdomen radiographs 06/18/2023 FINDINGS: There are no dilated loops of bowel. There are embolization coils in left upper quadrant. T here were surgical clips from cholecystectomy. There are multiple stones or clusters of stones in lef t kidney measuring up to 2.1 cm. There is a 5 mm stone in left kidney. IMPRESSION: 1. Bilateral kidney stones. Reviewed, dictated and finalized at location E. IMPRESSION: 1. Bilateral kidney stones.
--- NOTE | ~2023-08-01 | US_ITS ---
Renal-Bladder ultrasound Clinical History: Ureteral stone Technique: Real-time sonographic imaging of the kidneys and urinary bladder was performed. Findings: The right kidney measures 11.6 cm in length and the left kidney measures 11.6 cm. Nonobstru cting right lower pole renal stones are present, measuring up to 2 cm in diameter. No hydronephrosis. Renal cortical echogenicity is within normal limits. No renal mass lesion is identified. The urinary bladder is moderately distended at the time of this exam. No intraluminal echoes are iden tified. No abnormal wall thickening is seen. Impression: Nonobstructing right renal stones, as detailed above. No hydronephrosis. Reviewed, dictated and finalized at location . Impression: Nonobstructing right renal stones, as detailed above. No hydronephrosis.
== END 2023-08-01 12:52 | disposition home or self-care (01) ==
LOC: CHSIMG 12:53
PROVIDERS: PCP Family Medicine; Visit Provider Urology
DX: N20.0 Calculus of kidney (principal)
CPT/HCPCS: 74018; 76770

== ENCOUNTER 2023-09-12 04:22 | Day surgery (SDC) | payer OTHER, SELFPAY ==
[2023-09-02 12:45] VITALS: BMI 37.5
--- NOTE | 2023-09-10 21:12 | PM.HPGS ---
History of Present Illness History of Present Illness Consent: Risks, benefits, and alternatives have been discussed and questions answered. Patient agrees to proceed with procedure. Chief complaint: neoplasm screening Narrative: Jayson Calderon is a 53 year old male who is referred for colon cancer screening. Review of Systems Review of Systems: All systems reviewed & are unremarkable except as noted in HPI and below PMFSH Past Medical History Medical History Anxiety Bipolar affective, depress, part remis H/O nephrolithotomy with removal of calculi Mixed hyperlipidemia Nephrolithiasis Paresthesia and pain of left extremity Ruptured spleen Type 2 diabetes mellitus without complications Umbilical hernia Surgical History Surgical History H/O arthroscopic knee surgery H/O hernia repair History of cholecystectomy Family History Family History Mother Dementia Arthritis Father Diabetes mellitus Bladder cancer Grandparent Leukemia Heart disease Other Family history of malignant neoplasm of urinary bladder Social History Social History Smoking status: Never smoker Tobacco type: cigars Second hand tobacco smoke exposure: No Additional smoking assessment comments: Cigar once per month Alcohol intake: current Drinks per week: 3 Alcohol use details: 1 per month Substance use: never Substance use type: does not use Lack of Transportation: No Lack of Food: Never True Current Housing: I Have Housing Concerned About Future Housing: No Difficulty Paying Gas/Electric Bills: No Difficulty Paying for Meds: No Currently Unemployed: No Education: Associate Degree Difficulty w/ Childcare or Family Care: No Living arrangements: with family Occupation/Education: occupation Gender identity (if verbalized by the patient): Male Sexual Orientation (if Verbalized by the Patient): Straight or Heterosexual Spiritual care concerns: No Agree to blood products: Yes Meds Home Medications and Allergies Home Medications Medication Instructions Recorded Confirmed Type multivitamin 1 tablet PO DAILY 08/02/20 09/02/23 History tamsulosin 0.4 mg capsule 0.4 mg PO DAILY 08/29/22 09/02/23 History metformin 1,000 mg tablet 1,000 mg PO BID #180 tabs 12/22/22 09/02/23 Rx gabapentin 300 mg capsule 300 mg PO QHS #30 caps 02/16/23 09/02/23 Rx atorvastatin 80 mg tablet 80 mg PO DAILY #90 tabs 03/22/23 09/02/23 Rx aripiprazole 10 mg tablet 10 mg PO DAILY #90 tabs 06/16/23 09/02/23 Rx glimepiride 2 mg tablet 2 mg PO QAM #30 tabs 07/15/23 09/02/23 Rx sertraline 100 mg tablet 100 mg PO DAILY #90 tabs 08/01/23 09/02/23 Rx Allergies Allergy/AdvReac Type Severity Reaction Status Date / Time No Known Allergies Allergy Mild Verified 09/12/23 09:52 Exam Const: General: alert Orientation/consciousness: patient oriented x3 Resp: Auscultation: clear to auscultation bilaterally Cardio: Rhythm: regular rhythm GI: GI Palp: Yes Soft to palpation and No Tenderness to palpation present (GI) Neuro: General: patient oriented x3 Assessment and Plan Assessment and plan (1) Colon cancer screening: Code(s): Z12.11 - Encounter for screening for malignant neoplasm of colon Status: Acute Assessment and Plan: Colonoscopy with possible biopsy or polypectomy or cautery or injection of substances.
[2023-09-12 09:53] VITALS: BP 126/73; PULSE 65; RESP 18; TEMP 36.6; O2SAT 99; BMI 33.3
[2023-09-12] MEDS: LACTATED RINGERS 1,000 ML 150 ML IV CONT (09:57)
[2023-09-12 10:15] LABS: Glucose Point of Care 118 mg/dl (65-105)
--- NOTE | 2023-09-12 10:39 | WPDANESEPPF ---
Anes - Initial Pre Proc Eval Procedure: Operation Date: 09/12/23 10:30 Proposed Procedures p Screening Colonoscopy - Neo Mike MD Date/Time: 09/12/23 10:39 Surgeon: Neo Mike MD Pre Op Diagnosis: neoplasm screening Patient Data Age: 53 Gender: M Height: 1.91 m Weight: 121.1 kg Last Vital Signs Temp 97.8 F 09/12/23 09:53 Pulse 65 09/12/23 09:53 Resp 18 09/12/23 09:53 BP 126/73 09/12/23 09:53 Pulse Ox 99 09/12/23 09:53 O2 Del Method Room Air 09/12/23 09:53 Allergies Allergy/AdvReac Type Severity Reaction Status Date / Time No Known Allergies Allergy Mild Verified 09/12/23 09:52 Home Medications Medication Instructions Recorded Confirmed Type multivitamin 1 tablet PO DAILY 08/02/20 09/02/23 History tamsulosin 0.4 mg capsule 0.4 mg PO DAILY 08/29/22 09/02/23 History metformin 1,000 mg tablet 1,000 mg PO BID #180 tabs 12/22/22 09/02/23 Rx gabapentin 300 mg capsule 300 mg PO QHS #30 caps 02/16/23 09/02/23 Rx atorvastatin 80 mg tablet 80 mg PO DAILY #90 tabs 03/22/23 09/02/23 Rx aripiprazole 10 mg tablet 10 mg PO DAILY #90 tabs 06/16/23 09/02/23 Rx glimepiride 2 mg tablet 2 mg PO QAM #30 tabs 07/15/23 09/02/23 Rx sertraline 100 mg tablet 100 mg PO DAILY #90 tabs 08/01/23 09/02/23 Rx Laboratory Tests 09/12/23 10:14 POC Capillary Glucose 118 H mg/dl (65-105) Patient hx anesthesia problems: none Family hx anesthesia problems: none Results Review: All pre-operative results and documents have been reviewed as part of the pre-operative evaluation. [facility] Past Medical History Medical History Anxiety Bipolar affective, depress, part remis H/O nephrolithotomy with removal of calculi Mixed hyperlipidemia Nephrolithiasis Paresthesia and pain of left extremity Ruptured spleen Type 2 diabetes mellitus without complications Umbilical hernia Surgical History Surgical History H/O arthroscopic knee surgery H/O hernia repair History of cholecystectomy Family History Family History Mother Dementia Arthritis Father Diabetes mellitus Bladder cancer Grandparent Leukemia Heart disease Other Family history of malignant neoplasm of urinary bladder Social History Social History Smoking status: Never smoker Tobacco type: cigars Second hand tobacco smoke exposure: No Additional smoking assessment comments: Cigar once per month Alcohol intake: current Drinks per week: 3 Alcohol use details: 1 per month Substance use: never Substance use type: does not use Lack of Transportation: No Lack of Food: Never True Current Housing: I Have Housing Concerned About Future Housing: No Difficulty Paying Gas/Electric Bills: No Difficulty Paying for Meds: No Currently Unemployed: No Education: Associate Degree Difficulty w/ Childcare or Family Care: No Living arrangements: with family Occupation/Education: occupation Gender identity (if verbalized by the patient): Male Sexual Orientation (if Verbalized by the Patient): Straight or Heterosexual Spiritual care concerns: No Agree to blood products: Yes Anes - Eval Final PreProcedure Day of Procedure 09/12/23 10:39 Patient weight: obese Heart: regular rate and rhythm Lungs: clear to auscultation Airway: Mallampati scale class II Neurological: alert and oriented Last oral intake: >/= 8 hours ASA classification: III Emergent: no Anesthetic plan: proceed Anesthesia type and monitoring: general GIVS and standard monitoring Results Review: All pre-operative results and documents have been reviewed as part of the pre-operative evaluation. Informed Consent: The patient's anesthetic plan and its attendant risks and benefits were discussed with the p
[2023-09-12] MEDS: SIMETHICONE ORAL SUSPENSION 20 MG/0.3 ML 30 ML BOTTLE 0.6 ML IRRIGATION (10:54)
[2023-09-12 11:07] VITALS: BP 80/32; PULSE 63; RESP 19; O2SAT 94
[2023-09-12 11:17] VITALS: BP 109/61; PULSE 54; RESP 24; O2SAT 100
[2023-09-12 11:27] VITALS: BP 127/65; PULSE 57; RESP 18; O2SAT 100
== END 2023-09-12 11:39 | disposition home or self-care (01) ==
PROVIDERS: PCP Family Medicine; Visit Provider Internal Medicine Gastroenterology
PROC: 0DJD8ZZ Inspection of Lower Intestinal Tract, Via Natural or Artificial Opening Endoscopic (ICD-10-PCS; CPT 45378; principal; 2023-09-12 10:30)
DX: Z12.11 Encounter for screening for malignant neoplasm of colon (principal); K62.1 Rectal polyp; K57.30 Diverticulosis of large intestine without perforation or abscess without bleeding; E78.2 Mixed hyperlipidemia; E11.9 Type 2 diabetes mellitus without complications; F31.75 Bipolar disorder, in partial remission, most recent episode depressed; F41.9 Anxiety disorder, unspecified; Z72.0 Tobacco use; E66.9 Obesity, unspecified; Z68.33 Body mass index [BMI] 33.0-33.9, adult; Z79.84 Long term (current) use of oral hypoglycemic drugs
CPT/HCPCS: 45385; 82948; 88305; J2001; J2704; J7120

== ENCOUNTER 2024-01-01 09:50 | Outpatient (CLI) | payer OTHER, SELFPAY ==
--- NOTE | ~2024-01-01 | XR_ITS ---
Supine and upright views of the abdomen Clinical history: Kidney stones COMPARISON: 08/01/2023 Findings: Bowel gas pattern is nonspecific. No evidence for obstruction or free air. Cholecystectomy clips and left lower quadrant and vascular coils are present. Left renal stones measuring up to 6 mm. There is apparent round calcification which appears to be superior to the right kidney, possibly kelly pped gallstone. Osseous structures are intact. Impression: Left nephrolithiasis. Round calcified lesion superior to the right kidney. This is indeterminate, but stable from prior exa m. Reviewed, dictated and finalized at location M. OPERATOR Impression: Left nephrolithiasis. Round calcified lesion superior to the right kidney. This is indeterminate, but stable from prior exam.
== END 2024-01-01 09:51 | disposition home or self-care (01) ==
PROVIDERS: PCP Family Medicine; Visit Provider Urology
DX: N20.0 Calculus of kidney (principal)
CPT/HCPCS: 74018

== ENCOUNTER 2024-01-28 08:59 | Outpatient (CLI) | payer OTHER, SELFPAY ==
--- NOTE | ~2024-01-28 | XR_ITS ---
EXAMINATION: CT abdomen pelvis wo con, XR abdomen/kub 1V DATE: 01/28/2024 09:29 INDICATION: Calcium kidney stones TECHNIQUE: 1. Computed tomography (CT) of the abdomen and pelvis was performed without intravenous contrast. Aut omated exposure control and iterative reconstruction technique were employed. The dose-length product was 1478.00 mGy-cm. 2. AP view of the abdomen and pelvis was obtained on 2 radiographs. COMPARISON: KUB dated 01/01/[address] dated 06/18/2023 FINDINGS: CT: Lung bases are clear. Couple old healed posterior left rib fractures. Heart size is normal. Small pool unt of atherosclerotic coronary artery calcific location. No pericardial or pleural effusion. Mild di ffuse hepatic steatosis. Cholecystectomy clips at the gallbladder fossa.. There are calcified hepatic and splenic nodules consistent with old granulomatous disease. Additional dystrophic capsular calcif ications at the spleen likely sequela of chronic splenic trauma or infarct. Likely splenic artery emb olization coils near the tail of the pancreas. Pancreas is otherwise unremarkable. Bilateral adrenal glands are normal. Bilateral nephrolithiasis couple nonobstructing 1 mm right renal stones, 1 mm and 6 mm nonobstructing stones in the left kidney and 3 mm nonobstructing stone at the proximal most left ureter. No other ureteral stones in the right ureter or in the more distal left ureter. No hydroneph rosis. There are few scattered colonic diverticula without adjacent inflammatory stranding to suggest diverticulitis. Small bowel and appendix are normal. Bladder is normal. Prostatomegaly measuring 4.8 x 3.9 cm. No free intraperitoneal gas or fluid. No pathologically enlarged abdominal or pelvic lymph adenopathy. Moderate lumbar and lower thoracic spondylosis. KUB: The largest 6 mm left renal stone and 3 mm stone at the proximal most left ureter and both clearly vi sible on the plain radiographs. The smaller bilateral 1 mm renal stones are unable to be visualized. A calcified hepatic and splenic granulomata are also evident in the more cephalad left and right uppe r quadrants. Cholecystectomy clips the right upper quadrant. There are embolization coils in the left upper quadrant. No dilated gas-filled bowel to suggest obstruction. IMPRESSION: 1. Bilateral nephrolithiasis including a 3 mm stone at the proximal most left ureter without associat ed hydronephrosis. 2. Prostatomegaly. Reviewed, dictated and finalized at location B. 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 Bilateral nephrolithiasis including a 3 mm stone at the proximal most left u reter without associated hydronephrosis. 2. Prostatomegaly.
== END 2024-01-28 09:00 | disposition home or self-care (01) ==
PROVIDERS: PCP Family Medicine; Visit Provider Urology
DX: N20.2 Calculus of kidney with calculus of ureter (principal); N40.0 Benign prostatic hyperplasia without lower urinary tract symptoms
CPT/HCPCS: 74018; 74176

== ENCOUNTER 2024-02-11 07:55 | Outpatient (CLI) | payer OTHER, SELFPAY ==
--- NOTE | ~2024-02-11 | XR_ITS ---
EXAMINATION: XR abdomen/kub 1V DATE: 02/11/2024 08:11 INDICATION: Right ureteral stone. Abdominal discomfort. TECHNIQUE: A supine view of the abdomen on 2 radiographs was obtained. COMPARISON: Abdomen radiographs 01/28/2024, CT abdomen and pelvis 01/28/2024 FINDINGS: There are no dilated loops of bowel. Surgical clips in the right upper quadrant are likely from cholecystectomy. There are embolization coils in the splenic artery. There is a 6 mm stone in le ft kidney. There is a 4 mm stone in proximal left ureter at L3-L4. IMPRESSION: 1. 4 mm stone in proximal left ureter at L3-L4. 2. 6 mm left kidney stone. Reviewed, dictated and finalized at location A.
== END 2024-02-11 07:56 | disposition home or self-care (01) ==
PROVIDERS: PCP Family Medicine; Visit Provider Urology
DX: N20.1 Calculus of ureter (principal); N20.0 Calculus of kidney
CPT/HCPCS: 74018

== ENCOUNTER 2024-03-17 12:39 | Outpatient (CLI) | payer OTHER, SELFPAY ==
--- NOTE | ~2024-03-17 | XR_ITS ---
EXAMINATION: XR abdomen/kub 1V DATE: 03/17/2024 13:02 INDICATION: Right ureteral stone. TECHNIQUE: A supine view of the abdomen on 2 radiographs was obtained. COMPARISON: Abdomen radiographs 02/11/2024 FINDINGS: There are no dilated loops of bowel. There are embolization coils in the left upper quadran t. Surgical clips in the right upper quadrant are likely from cholecystectomy. There is a 6 mm stone in left kidney. IMPRESSION: 1. 6 mm stone in left kidney. Reviewed, dictated and finalized at location E.
== END 2024-03-17 12:40 | disposition home or self-care (01) ==
PROVIDERS: PCP Family Medicine; Visit Provider Urology
DX: N20.0 Calculus of kidney (principal)
CPT/HCPCS: 74018

== ENCOUNTER 2024-08-10 09:21 | Outpatient (CLI) | payer OTHER, SELFPAY ==
--- NOTE | ~2024-08-10 | XR_ITS ---
XR abdomen/kub 1V Ordering provider: Naseem Davis MD History: . Rt Ureteral stone . Comparison: None. FINDINGS: BOWEL: Nonobstructive bowel gas pattern. ORGANOMEGALY: None. SIGNIFICANT PATHOLOGIC CALCIFICATIONS: Bilateral kidney stones. OTHER: Possibility of a gallstone cannot be excluded. Ultrasound evaluation advised. No free air is s een under the diaphragm. Calcification projected over the symphysis pubis may represent a bladder stone. IMPRESSION: NO ACUTE ABDOMINAL FINDINGS. Bilateral kidney stones. Possible bladder stone Reviewed, dictated and finalized at location A.
== END 2024-08-10 09:22 | disposition home or self-care (01) ==
PROVIDERS: PCP Family Medicine; Visit Provider Urology
DX: N20.1 Calculus of ureter (principal)
CPT/HCPCS: 74018

== ENCOUNTER 2024-09-10 08:34 | Outpatient (CLI) | payer OTHER, SELFPAY ==
--- NOTE | ~2024-09-10 | XR_ITS ---
EXAMINATION: XR abdomen/kub 1V DATE: 09/10/2024 08:54 INDICATION: Calcium kidney stone. TECHNIQUE: A supine view of the abdomen on 2 radiographs was obtained. COMPARISON: Abdomen radiographs 08/10/2024 FINDINGS: There are no dilated loops of bowel. Surgical clips in the right upper quadrant are likely from cholecystectomy. There are 2 mm and 3 mm stones in right kidney. There is a 4 mm stone in left k idney. IMPRESSION: 1. Bilateral kidney stones. Reviewed, dictated and finalized at location A. IMPRESSION: 1. Bilateral kidney stones.
== END 2024-09-10 08:35 | disposition home or self-care (01) ==
PROVIDERS: PCP Family Medicine; Visit Provider Urology
DX: N20.0 Calculus of kidney (principal)
CPT/HCPCS: 74018

== ENCOUNTER 2024-12-21 09:03 | Outpatient (RCR) | payer OTHER, SELFPAY ==
--- NOTE | 2024-12-21 09:53 | PTOPEVAL1 ---
Assessment and note entered by Randi Cerrato DPT Evaluation Information Assessment Status Evaluation Diagnosis B hip pain Other ICD-10 Condition Codes ( M70.62, M70.61 PT) Onset 12/17/14 Subjective Information Patient about a year ago he noticed B hip pain that gradually has been worsening with R>L. He reports pain is keeping him awake at night, painful with walking and standing. he reports he is a side sleeper. x-rays show B bursitis. he reports they gave him cortisone shots that helped but pain is still present. 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 he reports he returns to [place] in 6 weeks. Reported Pain Level Pain Score 2,0: Self Report Assessment PT Clinical Summary Mr. Calderon is a 54 year old male who presents to PT with B hip pain. He objectively demonstrates decreased R LE strength, decreased BLE flexibility and decreased core strength impairing his ability to sleep, stand for long periods of time and ambulate. He would benefit from skilled PT to address impairments and return to PLOF. Plan of Care Interventions Electrical Stimulation,Gait Training,Hot Pack/Cold Pack,Manual Therapy,Mechanical Traction,Neuro Re- education,Patient/Caregiver Education,Therapeutic Activities,Therapeutic Exercise PT Services Indicated Yes Treatment Frequency and 2x weekly for 10 visits Duration These treatments will address the objective and functional deficits as defined above. The patient will be advanced safely and appropriately in order for the patient to progress towards his/her prior level of function. Additional exercises will be introduced and as well as a comprehensive home exercise program upon discharge, if needed, ?to ensure carryover of functional gains achieved in the clinic. This treatment plan has been reviewed and agreement upon by the patient.
--- NOTE | 2025-01-20 11:56 | OPREHPOC ---
Outpatient Therapy Plan of Care This is a Multidisciplinary Plan of Care that may contain components documented by all disciplines (PT, OT, and ST.) PT Problem 1 PT Problem #1 Knowledge Deficit PT Goal 1 Goal / Goal Update Patient to demonstrate independence with HEP Target Visit 5 Progress Met PT Problem 2 PT Problem #2 Pain PT Goal 1 Goal / Goal Update 1. Patient to report highest pain at 2/10 2. Patient to report ability to sleep with no disturbance due to hip pain Target Visit 10 Progress Met PT Problem 3 PT Problem #3 Impaired Strength PT Goal 1 Goal / Goal Update Patient to demonstrate 4+/5 strength of B LE to return to prolonged ambulation at PLOF Target Visit 10 Progress Met PT Problem 4 PT Problem #4 Impaired Functional Mobility PT Goal 1 Goal / Goal Update 1. patient to improve LEFS by 20% 2. patient to report ability to stand for >1 hour without increase in B hip pain Target Visit 10 Progress Met
--- NOTE | 2025-01-20 11:56 | PTOPDC ---
Assessment and note entered by Genna Peralta, PT Evaluation Information Assessment Status Discharge Diagnosis B hip pain Other ICD-10 Condition Codes ( M70.62, M70.61 PT) Onset 12/17/14 Subjective Information Mr. Calderon reports feeling 100% improved hip pain since beginning therapy. He is now able to sleep through the night without being awoken due to pain , and he is also able to stand for more than one hour without hip pain. Reported Pain Level Pain Score 0,0: Self Report Assessment PT Clinical Summary Mr. Calderon has attended 10 total skilled therapy visits for treatment of bilateral hip pain due to trochanteric bursitis. He has had excellent benefit from physical therapy and has made improvements in bilateral hip strength and is pain -free. He has met all therapeutic goals set for him and therefore skilled therapy is no longer indicated. Plan of Care PT Services Indicated No
== END 2025-01-20 15:16 | disposition home or self-care (01) ==
LOC: CHSPT 09:03
PROVIDERS: Visit Provider Physician Assistant Surgical
DX: M70.61 Trochanteric bursitis, right hip (principal); M70.62 Trochanteric bursitis, left hip
CPT/HCPCS: 97014; 97110; 97140; 97161; 97530; G0283

== ENCOUNTER 2025-03-08 09:48 | Outpatient (CLI) | payer OTHER, SELFPAY ==
--- NOTE | ~2025-03-08 | XR_ITS ---
XR abdomen/kub 1V 03/08/2025 10:08 Indication: Renal stones Procedure: KUB Comparison: KUB dated 09/10/2024 CT dated 01/28/2024 Findings: Bowel gas pattern is nonobstructive. There are calcified granulomas of the spleen and liver . There are cholecystectomy clips. There are bilateral renal stones in the lower poles of the kidneys . Moderate lumbar spondylosis. Impression: 1: Bilateral nephrolithiasis. Reviewed, dictated and finalized at location A. Impression: 1: Bilateral nephrolithiasis.
--- OUTSIDE RECORDS SUMMARY | 2025-03-08 11:00 | XMS_ITS | Clinical Summary ---
Author Organization [facility] Address [address] [place] [id number] Phone Care Team Providers Care Propeller Engineer Name Role Phone Lolis Canela MD Primary Care Provider [phone] Allergies No known active allergies Medications Medication Sig Dispensed Refills Start Date End Date Status ARIPiprazole (ABILIFY) 10 MG tablet Take 10 mg by mouth 1 (one) time each day 09/04/2020 Active atorvastatin (LIPITOR) 80 MG tablet Take 80 mg by mouth 1 (one) time each day 09/04/2020 Active glimepiride (AMARYL) 2 MG tablet Take 2 mg by mouth 1 (one) time each day with breakfast 09/04/2020 Active HYDROcodone-acetamino phen (NORCO) 5-325 MG per tablet Take 1 tablet by mouth every 6 (six) hours if needed for pain 07/22/2020 Active rOPINIRole (REQUIP) 0.25 MG tablet TAKE 1 TABLET BY MOUTH EVERYDAY AT BEDTIME 09/07/2020 Active sertraline (ZOLOFT) 100 MG tablet Take 100 mg by mouth 1 (one) time each day 09/05/2020 Active Januvia 50 MG tablet Take 50 mg by mouth 1 (one) time each day 09/06/2020 Active tamsulosin (FLOMAX) 0.4 MG 24 hr capsule Take by mouth 1 (one) time each day 08/15/2020 Active traMADol (ULTRAM) 50 MG tablet TK 1 T PO Q 6 H PRN 2020 Activ e metFORMIN (GLUCOPHAGE) 1000 MG tablet metformin 1,000 mg tablet Active Active Problems Problem Noted Date Diagnosed Date Osteoarthritis 09/17/2020 Family History Medical History Relation Comments Nephrolithiasis Brother Kidney disease Neg Hx Relation Status Comments Brother Social History Tobacco Use Types Packs/Day Years Used Date Smoking Tobacco: Never Smokeless Tobacco: Never Alcohol Use Standard Drinks/Week Comments Yes 6 (1 standard drink = 0.6 oz pur e alcohol) Sex and Gender Information Value Date Recorded Sex Assigned at Not on file Gender Identity Not on file Sexual Orientation Not on file Last Filed Vital Signs Vital Sign Reading Time Taken Comments Blood Pressure 120/70 12/13/2020 10:34 AM STEVEDORING SUPERVISOR Pulse - - Temperature 36.9 C (98.4 F) 12/13/2020 10:34 AM STEVEDORING SUPERVISOR Respiratory Rate 18 12/13/2020 10:34 AM STEVEDORING SUPERVISOR Oxygen Saturation - - Inhaled Oxygen Concentration - - Weight 130 kg (287 lb) 12/13/2020 10:34 AM STEVEDORING SUPERVISOR Height 190.5 cm (6' 3 ) 12/13/2020 10:34 AM STEVEDORING SUPERVISOR Body Mass Index 35.87 12/13/2020 10:34 AM STEVEDORING SUPERVISOR Plan of Treatment Health Maintenance Due Date Last Done Comments Influenza Vaccine (Season Ended) 2025 Care Teams Propeller Engineer Relationship Specialty Start Date End Date Lolis Canela MD [address] [place] [id number] PCP - General Internal Medicine 08/21/20
--- OUTSIDE RECORDS SUMMARY | 2025-03-08 11:00 | XMS_ITS | Clinical Summary ---
Author Organization [facility] Address [address] [place] [address] Care Team Providers Care Director Database Name Role Phone Lolis Canela MD Primary Care Provider [phone] Naseem Davis MD Unavailable [phone] Allergies No known active allergies Medications ARIPiprazole (ABILIFY) 10 mg tablet Take 1 tablet (10 mg total) by mouth daily 2 Active atorvastatin (LIPITOR) 80 mg tablet Take 1 tablet (80 mg total) by mouth daily 2 Active gabapentin (NEURONTIN) 100 mg capsule Take 3 capsules (300 mg total) by mouth nightly 2 Active glimepiride (AMARYL) 2 mg tablet Take 1 tablet (2 mg total) by mouth daily before breakfast 2 Active metFORMIN (GLUCOPHAGE) 1,000 mg tablet Take 1 tablet (1,000 mg total) by mouth 2 (two) times a day after breakfast and dinner 2 Active sertraline (ZOLOFT) 100 mg tablet Take 1 tablet (100 mg total) by mouth daily 2 Active tamsulosin (FLOMAX) 0.4 mg extended release capsule Take 1 capsule (0.4 mg total) by mouth daily 2 Active Active Problems Problem Noted Date Diagnosed Date Renal stone 11/18/2023 Surgical History Surgery Date Site/Laterality Comments CHOLECYSTECTOMY NECK SURGERY HERNIA REPAIR KNEE ARTHROSCOPY Bilateral OTHER SURGICAL HISTORY splenorrhaphy with coil in place NEPHROURETERAL STENT PLACEME NT NEW ACCESS RIGHT 11/18/2023 Right NEPHROURETERAL STENT PLACEME NT NEW ACCESS RIGHT 11/19/2023 Right URETERAL STENT PLACEMENT VIA EXISTING TRACT RIGHT 11/21/2023 Right Medical History Medical History Date Comments Obesity BMI 37 Depression HLD (hyperlipidemia) DM (diabetes mellitus) (HCC) Spinal stenosis Nephrolithiasis Social History Tobacco Use Types Packs/Day Years Used Date Smoking Tobacco: Never Smokeless Tobacco: Never Tobacco Cessation:Counseling Given: Not Answered AUDIT-C Answer Date Recorded Q1: How often do you have a drink containing alc ohol? 2-4 times a month 11/18/2023 Q2: How many drinks containi ng alcohol do you have on a typical day when you are drinking? 3 or 4 11/18/2023 Q3: How often do you have si x or more drinks on one occasion? Monthly 11/18/2023 Personal Safety Answer Date Recorded Have you ever been in or are you currently in a harmful physical or emotional relationship or is someone making you feel afraid or unsafe? 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 Gender Identity Not on file Sexual Orientation Not on file Obstetrics History Last Filed Vital Signs Vital Sign Reading Time Taken Comments Blood Pressure 134/74 11/21/2023 2:40 PM BALLOON PILOT Pulse 84 11/21/2023 2:40 PM BALLOON PILOT Temperature 36.7 C (98.1 F) 11/21/2023 2:40 PM BALLOON PILOT Respiratory Rate 17 11/21/2023 2:40 PM BALLOON PILOT Oxygen Saturation 95% 11/21/2023 2:40 PM BALLOON PILOT Inhaled Oxygen Concentration - - Weight 131.5 kg (290 lb) 11/18/2023 7:28 AM BALLOON PILOT Height 190.5 cm (6' 3 ) 11/18/2023 7:28 AM BALLOON PILOT Body Mass Index 36.25 11/18/2023 7:28 AM BALLOON PILOT Plan of Treatment Health Maintenance Due Date Last Done Comments Colon Cancer Screening-Colonoscopy 1972 Depression Screening 1972 Hepatitis C Screening 1972 Prostate Cancer Screening-PSA 1972 Hepatitis B Screening 1990 Regular Well Visit/Exam 18-64 1990 Zoster Vaccine (1 of 2) 2022 Covid-19 Vaccine (2023-2 5 season) 2024 09/26/2021, 09/03/2021 Influenza Vaccine (#1) 2024 DTaP/Tdap/Td Vaccine (2 - Td or Tdap) 02/17/2027 02/17/2017 Pneumococcal vaccine <65 Aged Out No longer eligible based on patient's age to complete this topic Medical Devices Implanted Type Area Driver Operator Device Identifier Shelf Expiration Date Model / Serial / Lot Jellynote Eduardo Contour 6fr 28cm Taper Tip Bladder Faisal Low Profile Large Inner Latex Free 180-224 - [id number] Implanted:Qty: 1 on 11/20/2023 by Naseem Davis MD at [facility] [employer] Eduardo 08/24/2026 [id number] / / [id number] [employer] Amplatz Rb 8.5fr 28cm 6 Sideport Introducer Catheter String [id number] - [id number] Implanted:Qty: 1 on 11/21/2023 at [facility] [employer] 09/29/2026 [id number] / / [id number] Insurance [facility] Advance Directives For more information, please contact: [phone] * Full Code (Latest Code Status on File) Date Activated Date Inactivated Comments 11/18/2023 4:47 PM 11/21/2023 11:04 PM Care Teams Director Database Relationship Specialty Start Date End Date Lolis Canela MD PCP - General Family Medicine 02/04/22 Naseem Davis MD [address] [facility] [address] [place] [address] Consulting Physician Urology 11/21/23
--- OUTSIDE RECORDS SUMMARY | 2025-03-08 11:00 | XMS_ITS | Clinical Summary ---
Author Organization [facility] Address [address] [place] [address] Care Team Providers Care Manager Non Profit Name Role Phone Lolis Canela MD Primary Care Provider [phone] Allergies No known active allergies Medications metFORMIN 1000 MG tablet Take 1,000 mg by mouth 2 (two) times daily with meals. Active aripiprazole 10 MG tablet Take 10 mg by mouth daily. Active sertraline 100 MG tablet Take 100 mg by mouth daily. Active meloxicam 15 MG tablet Take 15 mg by mouth daily. Active tamsulosin 0.4 MG Cap Take 0.4 mg by mouth daily. Active atorvastatin 80 MG tablet Take 80 mg by mouth daily. Active SITagliptin 50 MG tablet Take 50 mg by mouth daily. Active glimepiride 2 MG tablet Take 2 mg by mouth nightly at bedtime. Active atorvastatin 40 MG tablet Take 40 mg by mouth nightly at bedtime. 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 Gender Identity Male 06/20/2019 9:48 AM CDT Sexual Orientation Straight 06/20/2019 9: 48 AM CDT Last Filed Vital Signs Vital Sign Reading Time Taken Comments Blood Pressure 138/84 06/20/2019 11:11 AM CDT Pulse 88 06/20/2019 11:11 AM CDT Temperature 36.1 C (97 F) 06/20/2019 9:33 AM CDT Respiratory Rate 18 06/20/2019 11:11 AM CDT Oxygen Saturation 98% 06/20/2019 9:33 AM CDT Inhaled Oxygen Concentration - - Weight 138.3 kg (305 lb) 06/20/2019 9:33 AM CDT Height 190.5 cm (6' 3 ) 06/20/2019 9:33 AM CDT Body Mass Index 38.12 06/20/2019 9:33 AM CDT Plan of Treatment Health Maintenance Due Date Last Done Comments Colorectal Cancer Screening Colonoscopy (10 Years) 1972 Annual Physical 1975 Pneumococcal Vaccine: Pediat rics (0 to 5 Years) and At-Risk Patients (6 to 64 Years) (1 of 2 - PCV) 1978 Hepatitis C 1990 DTaP, Tdap and Td Vaccines ( 1 - Tdap) 1991 Hepatitis B Vaccines (1 of 3 - 19+ 3-dose series) 1991 Zoster Vaccines (1 of 2) 2022 COVID-19 Vaccine (1 - 2023-2 5 season) 2024 Meningococcal B Vaccine Aged Out No l onger eligible based on patient's age to complete this topic Meningococcal Vaccine Aged Out No courtney erich eligible based on patient's age to complete this topic RSV Immunizations Under 20 Months Aged Out No longer eligible based on patient's age to complete this topic Insurance [facility] Care Teams Manager Non Profit Relationship Specialty Start Date End Date Lolis Canela MD PCP - General FAMILY PRACTICE 06/20/19
--- OUTSIDE RECORDS SUMMARY | 2025-03-08 11:00 | XMS_ITS | Referral Summary ---
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 Gender Identity Not on file Sexual Orientation Not on file Last Filed Vital Signs Vital Sign Reading Time Taken Comments Blood Pressure 134/74 11/21/2023 2:40 PM COMPANY DRIVER Pulse 84 11/21/2023 2:40 PM COMPANY DRIVER Temperature 36.7 C (98.1 F) 11/21/2023 2:40 PM COMPANY DRIVER Respiratory Rate 17 11/21/2023 2:40 PM COMPANY DRIVER Oxygen Saturation 95% 11/21/2023 2:40 PM COMPANY DRIVER Inhaled Oxygen Concentration - - Weight 131.5 kg (290 lb) 11/18/2023 7:28 AM COMPANY DRIVER Height 190.5 cm (6' 3 ) 11/18/2023 7:28 AM COMPANY DRIVER Body Mass Index 36.25 11/18/2023 7:28 AM COMPANY DRIVER Plan of Treatment Not on file Medical Devices Implanted Type Area Textile Machine Mechanic Device Identifier Shelf Expiration Date Model / Serial / Lot [employer] Eduardo Contour 6fr 28cm Taper Tip Bladder Faisal Low Profile Large Inner Latex Free 180-224 - [id number] Implanted:Qty: 1 on 11/20/2023 by Naseem Davis MD at [facility] [employer] Eduardo 08/24/2026 [id number] / / [id number] [employer] Amplatz Rb 8.5fr 28cm 6 Sideport Introducer Catheter String [id number] - [id number] Implanted:Qty: 1 on 11/21/2023 at [facility] [employer] 09/29/2026 [id number] / / [id number] Insurance [facility] Address: [place] [address] [facility] Address: [place] [address] [facility] Address: [place] [address] Advance Directives For more information, please contact: [phone] * Full Code (Latest Code Status on File) Date Activated Date Inactivated Comments 11/18/2023 4:47 PM 11/21/2023 11:04 PM Care Teams Research Kennel Supervisor Relationship Specialty Start Date End Date Lolis aCnela MD PCP - General Family Medicine 02/04/22 Naseem Davis MD [address] [facility] [address] [place] [address] Consulting Physician Urology 11/21/23
--- OUTSIDE RECORDS SUMMARY | 2025-03-08 11:00 | XMS_ITS | Encounter Summary ---
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
--- OUTSIDE RECORDS SUMMARY | 2025-03-08 11:00 | XMS_ITS | Data Portability ---
Author Organization [place] - [place] [employer] [facility], Main Office Address [address] [place] [address] Care Team Providers Care Childcare Director Name Role Phone WOLF ORELLANA Primary Care Provider [phone] WOLF ORELLANA Referring Provider [phone] Assessment Encounter Date Assessment Date Assessment LastModified by Organization Details LastModified Time 04/05/2024 04/05/2024 By x-ray and jenelle yi the patient is noted to have moderate primary osteoarthritis both knees with fairly significant chondrocalcinosis in both knees right worse than left. We talked about treatment options today in detail he wanted proceed with cortisone this worked very well for him last time therefore under sterile conditions I injected both knee joints in the office with 4 cc 0.5% bupivacaine and 20 mg of Kenalog each. The patient tolerated the procedures well. We are going to try a course of Celebrex 200 mg daily as well. I will see him back in 6 weeks or so see how he is doing. If his symptoms continue we could try a course of gel shots. Today he was given a brochure on this we talked about this in detail today. He voiced understanding agrees above plan will call for any further problems difficulties or questions. We did talk about the importance of weight loss he is working on this with injectable medication and is starting to make progress by his report. Not available 04/05/2024 13:04:10 05/18/2024 05/18/2024 The patient has moderate primary osteoarthritis both knees right worse than left. Today he's doing very well after treatment with cortisone and Celebrex. He is going to continue with Celebrex 200 mg daily. We could do another shot of cortisone in either knee in another 6 weeks at that point he will be 3 months status post initial shots. We also talked about the possibility of gel shots to try to buy him some time until Friday he will require total knee arthroplasty. At 53 years of age not interested in total knee arthroplasty and I think it is best to get him by with conservative measures for now as well. He voiced understanding agrees above plan we will see him back as needed he will call for any further problems difficulties or questions. We talked about maintaining strength with proper nonweightbearing exercise as well today. Not available 05/18/2024 14:46:36 12/17/2024 12/17/2024 By today's x-ray and exam the patient is noted to have trochanteric bursitis bilateral hips x-rays did not show anything significant except a little bit of reactive changes over the bilateral hip trochanters. We talked about treatment options today in detail talked about stretching icing and anti-inflammatories he is on Celebrex currently we are going to give him a course of oral prednisone he will stop the Celebrex then resume after the prednisone is complete. We talked about the importance of stretching daily as well. We also talked about cortisone he wanted to proceed therefore under sterile conditions I injected the patient's bilateral hips into the trochanteric bursa laterally at the point of maximal tenderness with 4 cc of 0.5% bupivacaine and 20 mg of Kenalog each. The patient tolerated procedures well. I will see him back in 6 weeks to see what impact treatment has had he will do the course of physical therapy during that time. He voiced understanding and agreed with the above plan he will call for any further problems difficulties or questions. Not available 12/17/2024 11:08:18 01/28/2025 01/28/2025 The patient has resolved bilateral hip trochanteric bursitis. Treatment has worked well for him with cortisone stretching exercises and oral anti-inflammatory medication. He is going to continue with Celebrex 200 mg daily for other orthopedic issues. For now his hip pain has resolved. I have advised him to continue with the stretching exercises daily keeping good shape keep his weight in check and if his symptoms recur we could see him back for further evaluation and treatment in the future. For now he is dismissed. He voiced understanding and agreed with the above plan he will call for any further problems difficulties or questions. Not available 01/28/2025 11:07:57 Plan of Treatment Reminders Order Date Submit Date Provider Last Modified By Organization Details Last Modified Time Details Appointments None recorded. Lab None recorded. Referral physical therapist referral - please contact patient to schedule 2024 025 [email or web address] [facility], [address] [place], [address], 5 13:58:36 Procedures injection/a spiration joint/bursa (PROC) 2024 025 [email or web address] In-Office Order, Internal Use Only DO Not Attach Compendium DO Not Attach Compendium, Do Not Delete/merge, [id number] 5 10:56:32 injection/a spiration joint/bursa (PROC) 2023 024 [email or web address] In-Office Order, Internal Use Only DO Not Attach Compendium DO Not Attach Compendium, Do Not Delete/merge, [id number] 4 11:08:10 Surgeries None recorded. Imaging XR, hip + pelvis, bilateral 2024 025 [facility] [place], [address], [place], [address], 5 11:46:00 XR, knee 2023 024 [facility] [place], [address], [place], [address], 4 13:04:34 Medication Orders prednisone 10 mg tablets in a dose pack 2024 025 [id number], [address] [place], [address], 5 11:46:00 bupivacaine HCl 0.5 % (5 mg/mL) injection solution 2024 025 [id number], [address] [place], [address], 5 11:46:00 Kenalog 10 mg/mL suspension for injection [id number], [address] [place], [address], 5 11:46:00 bupivacaine HCl 0.5 % (5 mg/mL) injection solution [address]/[facility] #[id number], [address] [place], [address], 4 13:04:34 Kenalog 10 mg/mL suspension for injection [address] #[id number], [address] [place], [address], 4 13:04:34 celecoxib 200 mg capsule [address]/[facility]acy #[id number], [address] [place], [address], 4 13:04:34 Patient TargetsNo targets recorded. Patient InstructionsNo instructions recorded. Reason for Referral Physical Therapist Referral for Bilateral trochanteric bursitis please contact patient to schedule Referring Physician: Jamel Woodward, Orthopedic Surgery, Encounter Date: 12/17/2024 Results Created Date Observation Date Name Description Value Unit Range Abnormal Flag Note LastModifiedBy Organization Detail LastModifiedTime 05/14/20 21 XR, knee, 3 view No observ ation record ed. [id number] [facility] [place] [address], [place], [address], 01/29/2023 12:48:50 04/05/20 24 XR, knee No observ ation record ed. [facility] [place] [address], [place], [address], 04/05/2024 13:01:12 12/17/19 25 XR, hip + pelvi s, bilat eral No observ ation record ed. [facility] [place] [address], [place], [address], 12/17/2024 11:10:06 Result Notes None recorded. Problems Name Problem SNOMED Code Status Onset Date Resolution Date Notes Provider Name and Address Organization Details Recorded Time Osteoarthr itis 526603574 Active Not Available [facility] 3 12:45:53 Pain of bilateral knee joints 6921172288140 04 Active 2023 KARTIK Trinidad, [facility] [employer] 4 10:30:10 Bilateral osteoarthr itis of knees 7525037742585 07 Active [address] [facility], [address], [place], [address] , [facility] [employer] [facility] 4 13:02:57 Chondrocal cinosis of joint of right knee 8308053315462 107 Active 2023 OLGA Keyes [address] [facility], [address], [place], [address] , [facility] [employer] 4 13:03:04 Chondrocal cinosis of joint of left knee 3158881661598 101 Active [address] [facility], [facility] [address], [place], [address] , [facility] [place] [employer] 4 13:03:11 Bilateral hip joint pain 8936640154919 9100 Active 2024 ROQUE Pinto, [facility] 5 10:26:20 Bilateral trochanter ic bursitis 5076664063619 9109 Active 2024 Catalina yanez, [place] [facility] [place] [employer] 5 10:53:22 Problem Notes None recorded. Procedures Surgical History Date Name Laterality Status Provider Name and Address Organization Details Recorded Time Knee Surgery completed Not Available [employer] [facility] 01/29/2023 12:45:14 Hernia Repair completed KARTIK Trinidad Anjelica [facility] 04/05/2024 10:28:37 Gallbladder Surgery completed KARTIK Trinidad - Anjelica [facility] 04/05/2024 10:28:44 Imaging Results Imaging Date Name Status LastModified by Organiz ation Details LastModified Time 05/14/2021 XR, knee, 3 view completed [id number] [facility] [place] [address], [place], [address], 01/29/2023 12:48:50 04/05/2024 XR, knee completed [facility] [place] [address], [place], [address], 04/05/2024 13:01:12 12/17/2024 XR, hip + pelvis, bilateral completed [facility] [place] [address], [place], [address], 12/17/2024 11:10:06 Procedure Notes None recorded. Medical Equipment None Reported. Medications Name Sig Start Date Stop Date Status Note LastModified by Organization Details LastModified Time celecoxib 200 mg capsule TAKE 1 CAPSULE BY MOUTH EVERY DAY 2024 active Not Available Not Available Not Avai lable cyclobenzap rine 10 mg tablet 02/09 completed Not Available Not Available Not Available atorvastati n 40 mg tablet TAKE 1 TABLET BY MOUTH EVERY DAY 02/07 completed Not Available Not Available Not Available methocarbam ol 500 mg tablet 02/09 completed Not Available Not Available Not Available metformin 500 mg tablet 02/07 completed Not Available Not Available Not Available atorvastati n 80 mg tablet TAKE 1 TABLET BY MOUTH EVERY DAY active Not Available Not Available No t Available prednisone 10 mg tablet PLEASE SEE ATTACHED FOR DETAILED DIRECTION S active Not Available Not Available No t Available doxycycline hyclate 100 mg capsule 02/09 completed Not Available Not Available Not Available ropinirole 1 mg tablet TAKE 1 TABLET BY MOUTH AT BEDTIME 04/05 completed Not Available Not Available Not Available valacyclovi r 1 gram tablet TAKE 1 TABLET BY ORAL ROUTE THREE TIMES DAILY 02/07 completed Not Available Not Available Not Available hydrocodone 5 mg-acetamin ophen 325 mg tablet TAKE 1 TABLET BY MOUTH EVERY 6 HOURS NEEDED FOR PAIN 04/05 completed Not Available Not Available Not Available meloxicam 15 mg tablet 05/14 completed Not Available Not Available Not Available ondansetron HCl 4 mg tablet TAKE 1 TABLET BY MOUTH EVERY 8 HOURS active Not Available Not Available No t Available bupivacaine HCl 0.5 % (5 mg/mL) injection solution Take 40 mg by injection route. 2024 active Not Available Not Available Not Avai lable sertraline 100 mg tablet TAKE 1 TABLET (100MG) BY MOUTH DAILY active Not Available Not Available No t Available sulfamethox azole 800 mg-trimetho prim 160 mg tablet TAKE 1 TABLET BY MOUTH EVERY 12 HOURS 04/05 completed Not Available Not Available Not Available tramadol 50 mg tablet TAKE 1 TABLET BY MOUTH EVERY 6 HOURS NEEDED FOR PAIN 04/05 completed Not Available Not Available Not Available simvastatin 40 mg tablet 02/07 completed Not Available Not Available Not Available glimepiride 2 mg tablet TAKE 1 TABLET BY MOUTH IN THE MORNING WITH BREAKFAST active Not Available Not Available No t Available ketorolac 10 mg tablet 02/09 completed Not Available Not Available Not Available prednisone 10 mg tablets in a dose pack Take 1 tab by mouth, 3 times a day for 3 daysTake 1 tab by mouth 2 times a day for 2 daysTake 1 tab by mouth once a day for 1 day 2024 active Not Available Not Available Not Avai lable terbinafine HCl 250 mg tablet 02/09 completed Not Available Not Available Not Available methocarbam ol 750 mg tablet 02/07 completed Not Available Not Available Not Available DOK 100 mg capsule TK 1 C PO BID 02/07 completed Not Available Not Available Not Available tamsulosin 0.4 mg capsule TAKE 1 CAPSULE BY MOUTH EVERY DAY active Not Available Not Available No t Available ropinirole 0.25 mg tablet TAKE ONE TABLET BY MOUTH DAILY AT BEDTIME. 05/14 completed Not Available Not Available Not Available Kenalog 10 mg/mL suspension for injection Take 40 mg by injection route. 2024 active [facility]: 0003- 0494- 20 Not Available Not Available Not Available metformin 1,000 mg tablet TAKE 1 TABLET BY MOUTH TWICE A DAY WITH MORNING AND EVENING MEALS active Not Available Not Available No t Available indomethaci n 50 mg capsule 02/07 completed Not Available Not Available Not Available gabapentin 300 mg capsule TAKE 1 CAPSULE BY MOUTH EVERY DAY AT BEDTIME 04/05 completed Not Available Not Available Not Available metformin ER 500 mg tablet,exte nded release 24 hr 02/07 completed Not Available Not Available Not Available lisinopril 2.5 mg tablet 02/07 completed Not Available Not Available Not Available glipizide 5 mg tablet 02/07 completed Not Available Not Available Not Available Ventolin HFA 90 mcg/actuati on aerosol inhaler INHALE 2 PUFFS BY MOUTH EVERY 6 HOURS NEEDED FOR SHORTNESS OF BREATH 02/07 completed Not Available Not Available Not Available ezetimibe 10 mg tablet TAKE 1 TABLET BY MOUTH EVERY DAY active Not Available Not Available No t Available aripiprazol e 10 mg tablet TAKE 1 TABLET BY MOUTH EVERY DAY active Not Available Not Available No t Available metformin ER 1,000 mg tablet,exte nded release 24hr (osmotic) 02/07 completed Not Available Not Available Not Available fenofibrate micronized 130 mg capsule 02/07 completed Not Available Not Available Not Available metformin 2019 active Not Available Not Available Not Avai lable lidocaine (PF) 10 mg/mL (1 %) injection solution In office injection administe red by the provider 05/14 completed [facility]: 0409- 4276- 17 Not Available Not Available Not Available Januvia 50 mg tablet TAKE 1 TABLET BY MOUTH EVERY DAY 05/14 completed Not Available Not Available Not Available Pristiq 50 mg tablet,exte nded release 02/07 completed Not Available Not Available Not Available fenofibrate 54 mg tablet 02/07 completed Not Available Not Available Not Available [employer]u-Che[employer] SmartView Test Strips 02/07 completed Not Available Not Available Not Available Ozempic 1 mg/dose (4 mg/3 mL) subcutaneou s pen injector INJECT 1MG SUBCUTANE OUSLY ONCE WEEKLY active Not Available Not Available No t Available Ozempic 2 mg/dose (8 mg/3 mL) subcutaneou s pen injector 2 MG (0.75 ML) SUBCUTANE OUSLY WEEKLY FOR 90 DAYS active Not Available Not Available No t Available Ozempic 0.25 mg or 0.5 mg (2 mg/3 mL) subcutaneou s pen injector INJECT 0.5 MG (0.736 ML) SUBCUTANE OUSLY WEEKLY active Not Available Not Available No t Available Vitals Date Recorded Body mass index (BMI) Body height Body weight Provider Name and Address Organization Details Last Updated DateTime 05/14/2021 36 kg/m2 190.5 cm 987569.6 g Not Available [employer] 01/29/2023 12:45:17 Date Recorded Body height Body mass index (BMI) Body weight Provider Name and Address Organization Details Last Updated DateTime 04/05/2024 190.5 cm 35 kg/m2 191498.86 g Therese Yadav Ti [facility] [employer] 04/05/2024 10:27:38 Date Recorded Body height Body mass index (BMI) Body weight Provider Name and Address Organization Details Last Updated DateTime 05/18/2024 190.5 cm 34.4 kg/m2 085021.9 g Veronica Camacho [facility] [employer] 05/18/2024 14:25:13 Date Recorded Body height Body mass index (BMI) Body weight Provider Name and Address Organization Details Last Updated DateTime 12/17/2024 190.5 cm 35 kg/m2 056866.86 g Veronica Camacho [facility] [employer] 12/17/2024 10:25:28 Date Recorded Body height Body mass index (BMI) Body weight Provider Name and Address Organization Details Last Updated DateTime 01/28/2025 190.5 cm 33.1 kg/m2 320140.98 g Veronica Camacho [facility] [employer] 01/28/2025 10:43:36 Social History Question Answer Notes LastModified by Organizat ion Details LastModified Time How Much Tobacco Do You Smoke? No [id number] Information not available 01/29/2023 Sex: Unknown Functional Status None recorded. Mental Status None recorded. Family History Relationship Description Onset Age of this Age Resolved Age Notes LastModified by Organization Details LastModified Time Maternal Grandmother Family history of malignant neoplasm [id number] Not available 01/29/2023 12:45:14 Father Diabetes mellitus [id number] Not available 01/29/2023 12:45:14 Medical History Condition Response DIABETES, TYPE Y URINARY/BLADDER/KIDNEY PROBLEMS Y Past Encounters Encounter ID Performer Location Encounter Start Date Encounter Closed Date Diagnosis/Indication Diagnosis SNOMED-CT Code Diagnosis ICD10 Code Diagnosis Note [id number] [facility] [place] [address] [place] [address] 05/14/2021 00:00:00 05/14/2021 16:52:56 [id number] OLGA Keyes [facility] [place] [address] [place] [address] 04/05/2024 10:10:35 04/05/2024 11:18:51 Pain of bilateral knee joints 4117510119 62500 M25.561 M25.562 Bilateral osteoarthritis of knees 4434781456 48069 M17.0 Chondrocal cinosis of joint of right knee 3955479407 119170 M11.261 Chondrocal cinosis of joint of left knee 7550048206 589465 M11.041 [id number] OLGA Keyes [facility] [place] [address] [place] [address] 05/18/2024 14:20:31 05/18/2024 14:40:31 Bilateral osteoarthritis of knees 3052994367 55505 M17.0 Chondrocal cinosis of joint of right knee 4693239912 439412 M11.261 Chondrocal cinosis of joint of left knee 3622937094 419746 M11.262 Pain of bi lateral knee joints 3634512710 24836 M25.561 M25.394 [id number] OLGA Keyes [facility] [place] [address] [place] [address] 12/17/2024 10:19:45 12/17/2024 10:57:57 Bilateral hip joint pain 5255014678 9520210 M25.551 M25.552 Bilateral trochanteric bursitis 9427454908 0840182 M70.61 M70.62 [id number] OLGA Keyes [facility] [place] [address] [place] [address] 01/28/2025 10:29:44 01/28/2025 11:19:34 Bilateral trochanteric bursitis 0144872099 0625714 M70.61 M70.62 Bilateral hip joint pain 6481421357 0778658 M25.551 M25.552 Health Concerns Section Related Observation LastModified by Organization Detai ls LastModified Time None Recorded Concern Status LastModified by Organization Details LastModified Time None Recorded Advance Directives Directive None Recorded Payers Encounter Date Sequence Insurance Name Policy Number Policy Patel Covered Member ID Patel Member ID Guarantor Name 04/05/2024 [facility] [id number] Juarez Calderon [id number] Jayson Calderon 05/18/2024 [facility] [id number] Juarez Calderon [id number] Jayson Calderon 12/17/2024 [facility] [id number] Juarez Calderon [id number] Jayson Calderon 01/28/2025 [facility] [id number] Juarez Melina Yumiko [id number] Jayson Calderon Notes Date Note Type Note Provider Name and Address Organization Details Recorded Time 04/05/2024 text/html Patient is a 53-year-old male who presents with bilateral knee pain. He has a rather large gentleman 6 ft 3 in tall 280 lb currently he is on Ozempic trying to lose some weight and is making good progress with this after 1 month so far. In the meantime he has aching pain in both knees. He was last seen here May of 2021. At that time he had shots of cortisone both knees which gave him excellent relief for basically 3 years. Recently for the last month or so he has had quite a bit of aching pain right worse than left. His previous x-rays did show chondrocalcinosis in both knees right worse than left he states he has also had knee arthroscopy done 2 times on both knees for meniscal pathology. He denies any new specific trauma or injury states the pain is about a 5 on a scale 1-10 he has trouble squatting kneeling going up and down stairs he has stiffness aching pain that sometimes keeps him awake at night. Occasionally he will take some Tylenol and he is trying to lose weight. He comes in today for initial evaluation treatment of recurrent bilateral knee pain after nearly 3 years of good relief. New past medical history sheet was reviewed and signed on the intake sheet of today's date drug allergies current medications family social history previous surgical history 10 point review of systems was reviewed discussed in detail today with the patient. OLGA Keyes [address], [address], [place], [address], [facility] 04/05/2024 13:04:13 05/18/2024 text/html Patient returns for recheck of both knees. He has moderately severe primary osteoarthritis both knees with fairly significant chondrocalcinosis in both knees right worse than left. We treated him with Celebrex and shot of cortisone both knees 6 weeks ago. He states today he has 0 pain in the left knee the right knee went from being about a 6 on a scale 1-10 now to a 2 on a scale of 1-10. He states it is livable for him aggravates him a little bit but not too bad. He does lots of stair climbing at work this aggravates his knee a bit. He does have some wear in the patellofemoral articulation as well with some marginal osteophytes here. 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 He comes in today for recheck and to talk about further treatment options for the future if necessary. OLGA Keyes [address], [address], [place], [address], [employer] 05/18/2024 14:46:55 12/17/2024 text/html The patient retu rns with a new problem today. He is complaining of bilateral hip pain over the lateral trochanteric regions. Denies any specific trauma or injury. This has been going on for about a year states the pain and tenderness keep him awake at night he can not sleep on either side and he does like to sleep on his side. He has exquisite tenderness over the lateral trochanteric regions right a little worse than the left but they both bother him quite a bit he states the pain is about a 5 on a scale of 1-10 right now. At night sometimes it is worse. They will ache and throb limits his ability to sleep if he sits in 1 place too long it will also bother him. He is on Celebrex but this really isn't not taking care of the pain he takes that for his knees. Denies any weakness no groin pain no anterior thigh pain it is all localized to the lateral hips. If he has had a very busy day sometimes it will bother him more. He has not tried any ice stretching or other conservative measures. This has been going on for about a year prior to that he had not been having any issues with it. He comes in today for initial evaluation and treatment. The patient has previous past medical history was reviewed with him in detail today he denies any changes. OLGA Keyes [address], [address], [place], [address], [address] 12/17/2024 11:10:25 01/28/2025 text/html The patient retu rns for recheck of both hips he had bilateral hip trochanteric bursitis. It was quite bothersome for him. We treated him with oral steroids followed by Celebrex and a home stretching program as well as bilateral hip injections into the trochanteric bursa. The patient comes in today stating that his pain has essentially resolved. Will get occasional little twinges and notes that it is minimally tender at times but for the most part he has 0 pain. He is quite pleased with the results he comes in today to talk about further treatment options if necessary and for recheck. OLGA Keyes [address], [address], [place], [address], [facility] 01/28/2025 11:08:15
--- OUTSIDE RECORDS SUMMARY | 2025-03-08 11:01 | XMS_ITS | Clinical Summary ---
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
--- OUTSIDE RECORDS SUMMARY | 2025-03-08 11:01 | XMS_ITS | Encounter Summary ---
Author Organization [employer] Address [address] [place] [address] Care Team Providers Care Air Plant Engineer Name Role Phone Unavailable Primary Care Provider Unavailabl e Encounter Details Date Type Department Care Team (Late st Contact Info) Description 01/30/2021 Lab Requisition [facility] Imaging Services [facility] [address] [address] [place] [address] [place] [address] [facility] [address] [place] [address] Encounter for pre-employment examination Social History Tobacco Use Types Packs/Day Years Used Date Smoking Tobacco: Never Assessed Sex and Gender Information Value Date Recorded Sex Assigned at Not on file Legal Sex Male 12:48 PM PRECINCT COMMANDING OFFICER Gender Identity Not on file Sexual Orientation Not on file documented as of this encounter Plan of Treatment Not on file documented as of this encounter Procedures Procedure Name Priority Date/Time Associated Diagnosis Comments CBC WITH DIFFERENTIAL Routine 01/30/2021 8:30 AM PRECINCT COMMANDING OFFICER Encounter for pre-employment examination HEMOGLOBIN A1C Routine 01/30/2021 8:30 AM PRECINCT COMMANDING OFFICER Encounter for pre-employment examination LIPID PANEL Routine 01/30/2021 8:30 AM PRECINCT COMMANDING OFFICER Encounter for pre-employment examination COMPREHENSIVE METABOLIC PANEL Routine 01/30/2021 8:30 AM PRECINCT COMMANDING OFFICER Encounter for pre-employment examination documented in this encounter Results * (ABNORMAL) HEMOGLOBIN A1C (01/30/2021 8:30 AM PRECINCT COMMANDING OFFICER) HEMOGLOBIN A1C 6.0(H) <=5.6 % 01/30/2021 2:52 PM PRECINCT COMMANDING OFFICER [facility] - [facility] EST. AVG GLUCOSE, A1C 126 mg/dL 01/30/2021 2:52 PM [facility] Edfa[employer]ly [facility] Blood BLOOD SPECIMEN / Unknown Collection / Unknown 01/30/2021 8:30 AM PRECINCT COMMANDING OFFICER 01/30/2021 1:08 PM PRECINCT COMMANDING OFFICER [facility] - 01/30/2021 2:52 PM PRECINCT COMMANDING OFFICER HGB A1C INTERPRETATION NORMAL: <5.7% PRE-DIABETES: 5.7 - 6.4% DIABETES: 6.5% OR GREATER Praveen Barber MD CHEMISTRY ORDERABLES Final R esult [facility] CLIA# [id number] [place] [address] * (ABNORMAL) CBC WITH DIFFERENTIAL (01/30/2021 8:30 AM PRECINCT COMMANDING OFFICER) Pathologist [facility] WBC 8.3 4.5 - 10.5 K/uL 01/30/2021 2:31 PM [facility] RBC 4.80 4.50 - 5.40 M/uL 01/30/2021 2:31 PM [facility] HEMOGLOBIN 14.1 13.6 - 16.5 g/dL 01/30/2021 2:31 PM [facility] HEMATOCRIT 41.4 40.0 - 48.0 % 01/30/2021 2:31 PM [facility] MCV 86.4 82.0 - 99.0 fL 01/30/2021 2:31 PM [facility] MCH 29.3 27.8 - 34.5 pg 01/30/2021 2:31 PM [facility] MCHC 33.9 32.5 - 35.5 g/dL 01/30/2021 2:31 PM [facility] RDW 14.7(H) 11.5 - 14.5 % 01/30/2021 2:31 PM [facility] Edfa[employer] [facility] PLATELETS 325 160 - 420 K/uL 01/30/2021 2:31 PM [facility] [employer] [facility] MPV 8.2(L) 8.7 - 12.7 fL 01/30/2021 2:31 PM [facility] LABORATORY [facility] NEUTROPHILS 65 45 - 70 % 01/30/2021 2:31 PM [facility] LYMPHOCYTES 24 16 - 45 % 01/30/2021 2:31 PM [facility] LABORATORY [facility] MONOCYTES 7 3 - 13 % 01/30/2021 2:31 PM [facility] LABORATORY [facility] EOSINOPHILS 3 0 - 7 % 01/30/2021 2:31 PM [facility] LABORATORY [facility] BASOPHILS 1 0 - 2 % 01/30/2021 2:31 PM [facility] LABORATORY [facility] NEUTROPHIL ABSOLUTE 5.40 1.90 - 7.00 K/uL 01/30/2021 2:31 PM [facility] LYMPHOCYTE ABSOLUTE 2.00 0.70 - 4.50 K/uL 01/30/2021 2:31 PM [facility] MONOCYTE ABSOLUTE 0.60 0.10 - 1.30 K/uL 01/30/2021 2:31 PM [facility] LABORATORY [facility] EOSINOPHIL ABSOLUTE 0.30 0.00 - 0.70 K/uL 01/30/2021 2:31 PM [facility] LABORATORY [facility] BASOPHILS ABSOLUTE 0.00 0.00 - 0.20 K/uL 01/30/2021 2:31 PM [facility] Blood BLOOD SPECIMEN / Unknown Collection / Unknown 01/30/2021 8:30 AM PRECINCT COMMANDING OFFICER 01/30/2021 1:04 PM PRECINCT COMMANDING OFFICER us Praveen Barber MD HEMATOLOGY ORDERABLES Final Result [facility] CLIA# [id number] [place] [address] * (ABNORMAL) LIPID PANEL (01/30/2021 8:30 AM PRECINCT COMMANDING OFFICER) CHOLESTEROL 178 <200 mg/dL 01/30/2021 3:08 PM PRECINCT COMMANDING OFFICER [facility] TRIGLYCERIDE 115 <150 mg/dL 01/30/2021 3:08 PM [facility] HDL 33(L) 40 - 59 mg/dL 01/30/2021 3:08 PM [facility] LDL CALCULATED 122(H) <100 mg/dL 01/30/2021 3:08 PM [facility] NON-HDL CHOLESTEROL 145(H) <130 mg/dL 01/30/2021 3:08 PM [facility] Blood BLOOD SPECIMEN / Unknown Venipuncture / Unknown 01/30/2021 8:30 AM PRECINCT COMMANDING OFFICER 01/30/2021 1:06 PM [facility] [place] 01/30/2021 3:08 PM PRECINCT COMMANDING OFFICER TOTAL CHOLESTEROL mg/dL Desirable <200 Borderline high 200-239 High >=240 TRIGLYCERIDES mg/dL Normal <150 Borderline high 150-199 High 200-499 Very high >=500 HDL CHOLESTEROL mg/dL Low <40 Normal 40-59 Desirable >=60 NON HDL CHOLESTEROL mg/dL Optimal <130 Near Optimal 130-159 Borderline High 160-189 Very High >=190 CALCULATED LDL mg/dL LDL <70, OPTIMAL if have Atherosclerotic cardiovascular disease (ASCVD) or intermediate or higher (>7.5%) 10 year risk of ASCVD including most adults with diabetes. LDL <100, Optimal in adult patients with low (<7.5%) 10 year ASCVD risk LDL 100-160, Suboptimal LDL >160, High LDL >190, Very high ATPIII Guidelines Reference Ranges for Lipid Panels (NCEP/AMA) . Praveen Barber MD CHEMISTRY ORDERABLES Final R esult [facility] CLIA# [id number] [place] [address] * (ABNORMAL) COMPREHENSIVE METABOLIC PANEL (01/30/2021 8:30 AM PRECINCT COMMANDING OFFICER) SODIUM 143 136 - 145 mmol/L 01/30/2021 3:08 PM [facility] POTASSIUM 4.5 3.4 - 5.1 mmol/L 01/30/2021 3:08 PM [facility] CHLORIDE 103 98 - 107 mmol/L 01/30/2021 3:08 PM [facility] CO2 29 22 - 29 mmol/L 01/30/2021 3:08 PM [facility] CALCIUM 10.1 8.6 - 10.4 mg/dL 01/30/2021 3:08 PM [facility] BUN 14 6 - 20 mg/dL 01/30/2021 3:08 PM [facility] CREATININE 0.86 0.67 - 1.17 mg/dL 01/30/2021 3:08 PM [facility] GLUCOSE 127(H) 74 - 99 mg/dL 01/30/2021 3:08 PM [facility] TOTAL PROTEIN 7.8 6.3 - 8.7 g/dL 01/30/2021 3:08 PM [facility] ALBUMIN 4.6 3.5 - 5.2 g/dL 01/30/2021 3:08 PM [facility] BILIRUBIN TOTAL 0.5 0.2 - 1.3 mg/dL 01/30/2021 3:08 PM [facility] ALKALINE PHOSPHATASE 105 40 - 150 U/L 01/30/2021 3:08 PM [facility] AST 23 0 - 41 U/L 01/30/2021 3:08 PM [facility] ALT 26 0 - 41 U/L 01/30/2021 3:08 PM [facility] GFR >60 >=60 mL/min/1.7 3 sq meter 01/30/2021 3:08 PM [facility] Edfa[employer]ly [facility] Comment: eGFR has not been validated for use in the elderly (> 70 years of age), women, patients with serious co-morbid conditions, or persons with extremes of body size or muscle mass and should also be interpreted with caution in patients with acute kidney failure, dialysis dependent patients, patients reporting exceptional dietary intake (e.g. vegetarian diet, high protein diets, creatine supplementation), and patients with severe liver disease. Based on National Kidney Disease Education Program If patient is , please refer to the GFR result. GFR, >60 >=60 mL/min/1.7 3 sq meter 01/30/2021 3:08 PM PRECINCT COMMANDING OFFICER [facility] LAB[facility] ANION GAP 11 8 - 16 mmol/L 01/30/2021 3:08 PM PRECINCT COMMANDING OFFICER [facility] LABORAT[facility] Blood BLOOD SPECIMEN / Unknown Venipuncture / Unknown 01/30/2021 8:30 AM PRECINCT COMMANDING OFFICER 01/30/2021 1:06 PM PRECINCT COMMANDING OFFICER us Praveen Barber MD CHEMISTRY ORDERABLES Final R esult [facility] Edfa3ly [facility] CLIA# [id number] [place] [address] documented in this encounter Visit Diagnoses Diagnosis Encounter for pre-employment examination Health examination of defined subpopulation documented in this encounter
== END 2025-03-08 09:49 | disposition home or self-care (01) ==
LOC: ANHIMG 09:58
PROVIDERS: PCP Family Medicine; Visit Provider Urology
DX: N20.0 Calculus of kidney (principal)
CPT/HCPCS: 74018

== ENCOUNTER 2025-05-02 08:24 | Outpatient (CLI) | payer OTHER, SELFPAY ==
--- NOTE | ~2025-05-02 | XR_ITS ---
XR abdomen/kub 1V 05/02/2025 08:49 Indication: Renal stone follow-up Procedure: KUB Comparison: Comparison to multiple prior studies sequentially, with oldest reviewed study dated 03/17. Findings: There are stable bilateral renal stones. Stone in the left kidney appears to have migrated into the renal pelvis near the UPJ. There is calcification of the liver the level of the cholecystect donato clips. Bowel gas pattern nonobstructive. Moderate lumbar spondylosis. Bridging osteophytes at mul tiple levels. No acute osseous abnormality. Impression: 1: Bilateral nephrolithiasis. Reviewed, dictated and finalized at location A. Impression: 1: Bilateral nephrolithiasis.
--- OUTSIDE RECORDS SUMMARY | 2025-05-02 08:42 | XMS_ITS | Clinical Summary ---
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
--- OUTSIDE RECORDS SUMMARY | 2025-05-02 08:42 | XMS_ITS | Referral Summary ---
Author Organization [facility] Address [address] [place] [address] Care Team Providers Care Miter Cutter Name Role Phone Lolis Canela MD Primary Care Provider Naseem Davis MD Unavailable [phone] Allergies No known active allergies Medications [...] on file Legal Sex Male 10:08 PM ALTERNATIVE EDUCATION TEACHER Gender Identity Not on file Sexual Orientation Not on file Last Filed Vital Signs Vital Sign Reading Time Taken Comments Blood Pressure 134/74 11/21/2023 2:40 PM ALTERNATIVE EDUCATION TEACHER Pulse 84 11/21/2023 2:40 PM ALTERNATIVE EDUCATION TEACHER Temperature 36.7 C (98.1 F) 11/21/2023 2:40 PM ALTERNATIVE EDUCATION TEACHER Respiratory Rate 17 11/21/2023 2:40 PM ALTERNATIVE EDUCATION TEACHER Oxygen Saturation 95% 11/21/2023 2:40 PM ALTERNATIVE EDUCATION TEACHER Inhaled Oxygen Concentration - - Weight 131.5 kg (290 lb) 11/18/2023 7:28 AM ALTERNATIVE EDUCATION TEACHER Height 190.5 cm (6' 3) 11/18/2023 7:28 AM ALTERNATIVE EDUCATION TEACHER Body Mass Index 36.25 11/18/2023 7:28 AM ALTERNATIVE EDUCATION TEACHER Plan of Treatment Not on file Medical Devices Implanted Type Area Asphalt Layer Device Identifier Shelf Expiration Date Model / Serial / Lot [employer] Contour 6fr 28cm Taper Tip Bladder Faisal Low Profile Large Inner Latex Free 180-224 - [id number] Implanted:Qty: 1 on 11/20/2023 by Naseem Davis MD at [facility] [employer] Edu[employer] 08/24/2026 [id number] / / [id number] [employer] Amplatz Rb 8.5fr 28cm 6 Sideport Introducer Catheter String [id number] - [id number] Implanted:Qty: 1 on 11/21/2023 at [facility] [employer] 09/29/2026 [id number] / / [id number] Insurance Advance Directives For more information, please contact: [phone] * Full Code (Latest Code Status on File) Date Activated Date Inactivated Comments 11/18/2023 4:47 PM 11/21/2023 11:04 PM Care Teams Miter Cutter Relationship Specialty Start Date End Date Lolis Canela MD PCP - General Family Medicine 02/04/22 Naseem Davis MD [address] [facility] [address] [facility] [address] [place] [address] Consulting Physician Urology 11/21/23
--- OUTSIDE RECORDS SUMMARY | 2025-05-02 08:42 | XMS_ITS | Encounter Summary ---
Author Organization [employer] Address [address] [place] [address] Care Team Providers Care Varnisher Apprentice Name Role Phone Unavailable Primary Care Provider Unavailabl e Encounter Details Date Type Department Care Team (Late st Contact Info) Description 01/30/2021 Lab Requisition [facility] Imaging Services [facility] [address] [place] [address] [place] [address] [facility] [address] [place] [address] Encounter for pre-employment examination Social History Tobacco Use Types Packs/Day Years Used Date Smoking Tobacco: Never Assessed Sex and Gender Information Value Date Recorded Sex Assigned at Not on file Legal Sex Male 12:48 PM SUPERVISOR ASSEMBLY STOCK Gender Identity Not on file Sexual Orientation Not on file documented as of this encounter Plan of Treatment Not on file documented as of this encounter Procedures Procedure Name Priority Date/Time Associated Diagnosis Comments CBC WITH DIFFERENTIAL Routine 01/30/2021 8:30 AM SUPERVISOR ASSEMBLY STOCK Encounter for pre-employment examination HEMOGLOBIN A1C Routine 01/30/2021 8:30 AM SUPERVISOR ASSEMBLY STOCK Encounter for pre-employment examination LIPID PANEL Routine 01/30/2021 8:30 AM SUPERVISOR ASSEMBLY STOCK Encounter for pre-employment examination COMPREHENSIVE METABOLIC PANEL Routine 01/30/2021 8:30 AM SUPERVISOR ASSEMBLY STOCK Encounter for pre-employment examination documented in this encounter Results * (ABNORMAL) HEMOGLOBIN A1C (01/30/2021 8:30 AM SUPERVISOR ASSEMBLY STOCK) HEMOGLOBIN A1C 6.0(H) <=5.6 % 01/30/2021 2:52 PM SUPERVISOR ASSEMBLY STOCK [facility] - [facility] EST. AVG GLUCOSE, A1C 126 mg/dL 01/30/2021 2:52 PM [facility] Frank[facility] Blood BLOOD SPECIMEN / Unknown Collection / Unknown 01/30/2021 8:30 AM SUPERVISOR ASSEMBLY STOCK 01/30/2021 1:08 PM SUPERVISOR ASSEMBLY STOCK [facility] - 01/30/2021 2:52 PM SUPERVISOR ASSEMBLY STOCK HGB A1C INTERPRETATION NORMAL: <5.7% PRE-DIABETES: 5.7 - 6.4% DIABETES: 6.5% OR GREATER Praveen Barber MD CHEMISTRY ORDERABLES Final R esult [facility] CLIA# [id number] [place] [address] * (ABNORMAL) CBC WITH DIFFERENTIAL (01/30/2021 8:30 AM SUPERVISOR ASSEMBLY STOCK) Pathologist [facility] WBC 8.3 4.5 - 10.5 K/uL 01/30/2021 2:31 PM [facility] RBC 4.80 4.50 - 5.40 M/uL 01/30/2021 2:31 PM [facility] HEMOGLOBIN 14.1 13.6 - 16.5 g/dL 01/30/2021 2:31 PM [facility] HEMATOCRIT 41.4 40.0 - 48.0 % 01/30/2021 2:31 PM [facility] MCV 86.4 82.0 - 99.0 fL 01/30/2021 2:31 PM [facility] MCH 29.3 27.8 - 34.5 pg 01/30/2021 2:31 PM [facility] MCHC 33.9 32.5 - 35.5 g/dL 01/30/2021 2:31 PM [facility] RDW 14.7(H) 11.5 - 14.5 % 01/30/2021 2:31 PM [facility] Frankly [facility] PLATELETS 325 160 - 420 K/uL 01/30/2021 2:31 PM [facility] Frankly [facility] MPV 8.2(L) 8.7 - 12.7 fL 01/30/2021 2:31 PM [facility] LABORATORY [facility] NEUTROPHILS 65 45 - 70 % 01/30/2021 2:31 PM [facility] LYMPHOCYTES 24 16 - 45 % 01/30/2021 2:31 PM [facility] LABORATORY [facility] MONOCYTES 7 3 - 13 % 01/30/2021 2:31 PM [facility] LABORATORY [facility] EOSINOPHILS 3 0 - 7 % 01/30/2021 2:31 PM [facility] LABORATORY [facility] BASOPHILS 1 0 - 2 % 01/30/2021 2:31 PM [facility] LABORATORY [facility] NEUTROPHIL ABSOLUTE 5.40 1.90 - 7.00 K/uL 01/30/2021 2:31 PM [facility] LYMPHOCYTE ABSOLUTE 2.00 0.70 - 4.50 K/uL 01/30/2021 2:31 PM [facility] MONOCYTE ABSOLUTE 0.60 0.10 - 1.30 K/uL 01/30/2021 2:31 PM [facility] LABORATORY [facility] EOSINOPHIL ABSOLUTE 0.30 0.00 - 0.70 K/uL 01/30/2021 2:31 PM [facility] LABORATORY [facility] BASOPHILS ABSOLUTE 0.00 0.00 - 0.20 K/uL 01/30/2021 2:31 PM [facility] Blood BLOOD SPECIMEN / Unknown Collection / Unknown 01/30/2021 8:30 AM SUPERVISOR ASSEMBLY STOCK 01/30/2021 1:04 PM SUPERVISOR ASSEMBLY STOCK us Praveen Barber MD HEMATOLOGY ORDERABLES Final Result [facility] CLIA# [id number] [place] [address] * (ABNORMAL) LIPID PANEL (01/30/2021 8:30 AM SUPERVISOR ASSEMBLY STOCK) CHOLESTEROL 178 <200 mg/dL 01/30/2021 3:08 PM SUPERVISOR ASSEMBLY STOCK [facility] TRIGLYCERIDE 115 <150 mg/dL 01/30/2021 3:08 PM [facility] HDL 33(L) 40 - 59 mg/dL 01/30/2021 3:08 PM [facility] LDL CALCULATED 122(H) <100 mg/dL 01/30/2021 3:08 PM [facility] NON-HDL CHOLESTEROL 145(H) <130 mg/dL 01/30/2021 3:08 PM [facility] Blood BLOOD SPECIMEN / Unknown Venipuncture / Unknown 01/30/2021 8:30 AM SUPERVISOR ASSEMBLY STOCK 01/30/2021 1:06 PM [facility] - 01/30/2021 3:08 PM SUPERVISOR ASSEMBLY STOCK TOTAL CHOLESTEROL mg/dL Desirable <200 Borderline high [...] Barber MD CHEMISTRY ORDERABLES Final R esult [facility] CLIA# [id number] [place] [address] * (ABNORMAL) COMPREHENSIVE METABOLIC PANEL (01/30/2021 8:30 AM SUPERVISOR ASSEMBLY STOCK) SODIUM 143 136 - 145 mmol/L 01/30/2021 3:08 PM [facility] POTASSIUM 4.5 3.4 - 5.1 mmol/L 01/30/2021 3:08 PM [facility] CHLORIDE 103 98 - 107 mmol/L 01/30/2021 3:08 PM [facility] CO2 29 22 - 29 mmol/L 01/30/2021 3:08 PM [facility] CALCIUM 10.1 8.6 - 10.4 mg/dL 01/30/2021 3:08 PM [facility] BUN 14 6 - 20 mg/dL 01/30/2021 3:08 PM [facility] CREATININE 0.86 0.67 - 1.17 mg/dL 01/30/2021 3:08 PM [facility] GLUCOSE 127(H) 74 - 99 mg/dL 01/30/2021 3:08 PM [facility] TOTAL PROTEIN 7.8 6.3 - 8.7 g/dL 01/30/2021 3:08 PM [facility] ALBUMIN 4.6 3.5 - 5.2 g/dL 01/30/2021 3:08 PM [facility] BILIRUBIN TOTAL 0.5 0.2 - 1.3 mg/dL 01/30/2021 3:08 PM [facility] ALKALINE PHOSPHATASE 105 40 - 150 U/L 01/30/2021 3:08 PM [facility] AST 23 0 - 41 U/L 01/30/2021 3:08 PM [facility] ALT 26 0 - 41 U/L 01/30/2021 3:08 PM [facility] GFR >60 >=60 mL/min/1.7 3 sq meter 01/30/2021 3:08 PM [facility] Frank[facility] Comment: eGFR has not been validated for [...] mL/min/1.7 3 sq meter 01/30/2021 3:08 PM SUPERVISOR ASSEMBLY STOCK [facility] ANION GAP 11 8 - 16 mmol/L 01/30/2021 3:08 PM SUPERVISOR ASSEMBLY STOCK [facility] Blood BLOOD SPECIMEN / Unknown Venipuncture / Unknown 01/30/2021 8:30 AM SUPERVISOR ASSEMBLY STOCK 01/30/2021 1:06 PM SUPERVISOR ASSEMBLY STOCK us Praveen Barber MD CHEMISTRY ORDERABLES Final R esult [facility] Frankly [facility] CLIA# [id number] [place] [address] documented in this encounter Visit Diagnoses Diagnosis Encounter for pre-employment examination Health examination of defined subpopulation documented in this encounter
--- OUTSIDE RECORDS SUMMARY | 2025-05-02 08:42 | XMS_ITS | Clinical Summary ---
Author Organization [employer] [facility] Address [address] [place] [phone] Phone Care Team Providers Care Crossbar Switch Adjuster Name Role Phone Lolis Canela MD Primary Care Provider [phone] Allergies No known active allergies Medications ARIPiprazole (ABILIFY) 10 MG tablet Take 10 mg by mouth 1 (one) time each day 0 Active atorvastatin (LIPITOR) 80 MG tablet Take 80 mg by mouth 1 (one) time each day 0 Active glimepiride (AMARYL) 2 MG tablet Take 2 mg by mouth 1 (one) time each day with breakfast 0 Active HYDROcodone-kenneth taminophen (NORCO) 5-325 MG per tablet Take 1 tablet by mouth every 6 (six) hours if needed for pain 0 Active rOPINIRole (REQUIP) 0.25 MG tablet TAKE 1 TABLET BY MOUTH EVERYDAY AT BEDTIME 0 Active sertraline (ZOLOFT) 100 MG tablet Take 100 mg by mouth 1 (one) time each day 0 Active Januvia 50 MG tablet Take 50 mg by mouth 1 (one) time each day 0 Active tamsulosin (FLOMAX) 0.4 MG 24 hr capsule Take by mouth 1 (one) time each day 0 Active traMADol (ULTRAM) 50 MG tablet TK 1 T PO Q 6 H PRN 0 Active metFORMIN (GLUCOPHAGE) 1000 MG tablet metformin 1,000 [...] at Not on file Legal Sex Male 9:00 AM MDT Gender Identity Not on file Sexual Orientation Not on file Last Filed Vital Signs Vital Sign Reading Time Taken Comments Blood Pressure 120/70 12/13/2020 10:34 AM STAFFING BRANCH MANAGER Pulse - - Temperature 36.9 C (98.4 F) 12/13/2020 10:34 AM STAFFING BRANCH MANAGER Respiratory Rate 18 12/13/2020 10:34 AM STAFFING BRANCH MANAGER Oxygen Saturation - - Inhaled Oxygen Concentration - - Weight 130 kg (287 lb) 12/13/2020 10:34 AM STAFFING BRANCH MANAGER Height 190.5 cm (6' 3) 12/13/2020 10:34 AM STAFFING BRANCH MANAGER Body Mass Index 35.87 12/13/2020 10:34 AM STAFFING BRANCH MANAGER Plan of Treatment Health Maintenance Due Date Last Done Comments Influenza Vaccine (Season Ended) 2025 Insurance [place] [id number] Care Teams Crossbar Switch Adjuster Relationship Specialty Start Date End Date Lolis Canela MD [address] [place] [id number] PCP - General Internal Medicine 08/21/20
--- OUTSIDE RECORDS SUMMARY | 2025-05-02 08:42 | XMS_ITS | Data Portability ---
Author Organization [place] - S MD [employer] [facility], Main Office Address [address] [place] [address] Care Team Providers Care Lockstitch Coat Joiner Name Role Phone WOLF ORELLANA Primary Care Provider WOLF ORELLANA Referring Provider Assessment Encounter Date Assessment Date Assessment LastModified [...] contact patient to schedule 2024 025 [email or web address] [facility], [address] [place], [address], 5 13:58:36 Procedures injection/a spiration joint/bursa (PROC) 2024 025 [email or web address] In-Office Order, Internal Use Only DO Not Attach Compendium DO Not Attach Compendium, Do Not Delete/merge, [id number] 5 10:56:32 injection/a spiration joint/bursa (PROC) 2023 024 [email or web address] In-Office Order, Internal Use Only DO Not Attach Compendium DO Not Attach Compendium, Do Not Delete/merge, [id number] 4 11:08:10 Surgeries None recorded. Imaging XR, hip + pelvis, bilateral 2024 025 [facility], [address], [place], [address], 5 11:46:00 XR, knee 2023 024 [facility] [place], [address], [place], [address], 4 13:04:34 Medication Orders prednisone 10 mg tablets in a dose pack 2024 025 [id number], [address] [place], [address], 5 11:46:00 bupivacaine HCl 0.5 % (5 mg/mL) injection solution 2024 025 [id number], [address] [place], [address], 5 11:46:00 Kenalog 10 mg/mL suspension for injection [address][id number], [address] [place], [address], 5 11:46:00 bupivacaine HCl 0.5 % (5 mg/mL) injection solution [address] #[id number], [address] [place], [address], 4 13:04:34 Kenalog 10 mg/mL suspension for injection [address] #[id number], [address] [place], [address], 4 13:04:34 celecoxib 200 mg capsule [address]/[facility] #[id number], [address] [place], [address], 4 13:04:34 Patient TargetsNo targets recorded. Patient InstructionsNo instructions recorded. Reason for Referral Physical Therapist Referral for Bilateral trochanteric bursitis please contact patient to schedule Referring Physician: Jamel Woodward, Orthopedic Surgery, Encounter Date: 12/17/2024 Results Created Date Observation Date Name Description Value Unit Range Abnormal Flag Note LastModifiedBy Organization Detail LastModifiedTime 05/14/20 21 XR, knee, 3 view No observ ation record ed. [id number] [facility] [place] [address], [place], [address], 01/29/2023 12:48:50 04/05/20 24 XR, knee No observ ation record ed. [facility] [address], [place], [address], 04/05/2024 13:01:12 12/17/19 25 XR, hip + pelvi s, bilat eral No observ ation record ed. [facility] [place] [address], [place], [address], 12/17/2024 11:10:06 Result Notes None recorded. Problems Name Problem SNOMED Code Status Onset Date Resolution Date Notes Provider Name and Address Organization Details Recorded Time Osteoarthr itis 206458052 Active Not Available [facility] 3 12:45:53 Pain of bilateral knee joints 1524378918727 04 Active 2023 KARTIK Trinidad, [facility] [employer] 4 10:30:10 Bilateral osteoarthr itis of knees 8257669567824 07 Active 2023 OLGA Keyes [address] [facility] [facility] [address], [place], [address] , [facility] 4 13:02:57 Chondrocal cinosis of joint of right knee 6912394644903 107 Active 2023 OLGA Keyes [address] [facility], [place], [address] , [facility] 4 13:03:04 Chondrocal cinosis of joint of left knee 5411743159303 101 Active 2023 OLGA Keyes [address] [facility], [facility] [address], [place], [address] , [facility] 4 13:03:11 Pain of bilateral hip joints 5487329445028 9100 Active 2024 ROQUE Pinto, [place] - [facility] 5 10:26:20 Bilateral trochanter ic bursitis 6317497452616 9109 Active 2024 Catalina yanez, [place] - [facility] 5 10:53:22 Problem Notes None recorded. Procedures Surgical History Date Name Laterality Status Provider Name and Address Organization Details Recorded Time Knee Surgery completed Not Available [facility] 01/29/2023 12:45:14 Hernia Repair [facility] 04/05/2024 10:28:37 Gallbladder Surgery completed KARTIK Trinidad [facility] 04/05/2024 10:28:44 Imaging Results None recorded. Procedure Notes None recorded. Medical Equipment None [...] 40 mg by injection route. [address] [facility]: 0003- 0494- 20 Not Available Not Available [...] administe red by the provider 05/[address] [facility]: 0409- 4276- 17 Not Available Not Available [...] No t Available Vitals Date Recorded Body height Body mass index (BMI) Body weight Provider Name and Address Organization Details Last Updated DateTime 12/17/2024 190.5 cm 35 kg/m2 054592.86 g Veronica Camacho CNA [place] [facility] [employer] [facility] 12/17/2024 10:25:28 Date Recorded Body height Body mass index (BMI) Body weight Provider Name and Address Organization Details Last Updated DateTime 01/28/2025 190.5 cm 33.1 kg/m2 721016.98 g Veronica Camacho [employer] [facility] 01/28/2025 10:43:36 Date Recorded Body height Body mass index (BMI) Body weight Provider Name and Address Organization Details Last Updated DateTime 04/05/2024 190.5 cm 35 kg/m2 226384.86 g KARTIK Trinidad [facility] 04/05/2024 10:27:38 Date Recorded Body mass index (BMI) Body height Body weight Provider Name and Address Organization Details Last Updated DateTime 05/14/2021 36 kg/m2 190.5 cm 067191.6 g Not Available [facility] 01/29/2023 12:45:17 Date Recorded Body height Body mass index (BMI) Body weight Provider Name and Address Organization Details Last Updated DateTime 05/18/2024 190.5 cm 34.4 kg/m2 802038.9 g Veronica Camacho [facility] 05/18/2024 14:25:13 Social History Question Answer Notes LastModified by [employer] ion Details LastModified Time How Much Tobacco Do You Smoke? No [id number] Information not available 01/29/2023 Sex: Unknown Functional Status None recorded. Mental Status None recorded. Family History Relationship Description Onset Age of this Age Resolved Age Notes LastModified by Organization Details LastModified Time Maternal Grandmother Family history of malignant neoplasm [id number] Not available 01/29/2023 12:45:14 Father Diabetes mellitus [id number] Not available 01/29/2023 12:45:14 Medical History Condition Response DIABETES, TYPE Y URINARY/BLADDER/KIDNEY PROBLEMS Y Past Encounters Encounter ID Performer Location Encounter Start Date Encounter Closed Date Diagnosis/Indication Diagnosis SNOMED-CT Code Diagnosis ICD10 Code Diagnosis Note [id number] Praveen Diane MD [facility] [address] [place] [address] 05/14/2021 00:00:00 05/14/2021 16:52:56 [id number] Bryant Edward MD [facility] [address] [place] [address] 04/05/2024 10:10:35 04/05/2024 11:18:51 Pain of bilateral knee joints 5336162252 85222 M25.561 M25.562 Bilateral osteoarthritis of knees 6570377976 69861 M17.0 Chondrocal cinosis of joint of right knee 9566736956 651299 M11.261 Chondrocal cinosis of joint of left knee 9392544095 814346 M11.941 [id number] Bryant Edward MD [facility] [place] [address] [place] [address] 05/18/2024 14:20:31 05/18/2024 14:40:31 Bilateral osteoarthritis of knees 2277736739 67425 M17.0 Chondrocal cinosis of joint of right knee 5511079921 677622 M11.261 Chondrocal cinosis of joint of left knee 5542043247 501201 M11.262 Pain of bi lateral knee joints 3744939581 29975 M25.561 M25.061 [id number] Bryant Edward MD [facility] [place] [address] [place] [address] 12/17/2024 10:19:45 12/17/2024 10:57:57 Pain of bilateral hip joints 9974673008 1241342 M25.551 M25.552 Bilateral trochanteric bursitis 3130314485 8442898 M70.61 M70.62 [id number] Bryant Edward MD [facility] [place] [address] [place] [address] 01/28/2025 10:29:44 01/28/2025 11:19:34 Bilateral trochanteric bursitis 0196473865 0884498 M70.61 M70.62 Pain of bi lateral hip joints 3395718813 6907398 M25.551 M25.552 Health Concerns Section Related Observation LastModified by Organization Detai ls LastModified Time None Recorded Concern Status LastModified by Organization Details LastModified Time None Recorded Advance Directives Directive None Recorded Payers Encounter Date Sequence Insurance Name Policy Number Policy Patel Covered Member ID Patel Member ID Guarantor Name 04/05/2024 1 [facility] [id number] Juarez Calderon [id number] Jayson Calderon 05/18/2024 1 [facility] [id number] Juarez Calderon [id number] Jayson Calderon 12/17/2024 1 [facility] [id number] Juarez Calderon [id number] Jayson Calderon 01/28/2025 1 [facility] [id number] Juarez Calderon [id number] Jayson Calderon Notes Date Note Type Note [...] detail today with the patient. OLGA Keyes [address] [place] [address], [facility] [address], [place], [address], [facility] 04/05/2024 13:04:13 05/18/2024 text/html Patient returns for [...] the future if necessary. OLGA Keyes [address] [facility] [facility] [address], [place], [address], [place] [facility] [employer] 05/18/2024 14:46:55 12/17/2024 text/html The patient retu [...] OLGA Keyes [address], [place], [address], [employer] 12/17/2024 11:10:25 01/28/2025 text/html The patient retu [...] OLGA Keyes [address], [address], [place], [address], [employer] 01/28/2025 11:08:15
--- OUTSIDE RECORDS SUMMARY | 2025-05-02 08:42 | XMS_ITS | Clinical Summary ---
Author Organization [facility] Address [address] [place] [address] Care Team Providers Care Integrated Campaign Manager Name Role Phone Lolis Canela MD Primary Care Provider [phone] Naseem Davis MD Unavailable [phone] Allergies No known active allergies Medications [...] on file Legal Sex Male 10:08 PM CRANE CHASER Gender Identity Not on file Sexual Orientation Not on file Obstetrics History Last Filed Vital Signs Vital Sign Reading Time Taken Comments Blood Pressure 134/74 11/21/2023 2:40 PM CRANE CHASER Pulse 84 11/21/2023 2:40 PM CRANE CHASER Temperature 36.7 C (98.1 F) 11/21/2023 2:40 PM CRANE CHASER Respiratory Rate 17 11/21/2023 2:40 PM CRANE CHASER Oxygen Saturation 95% 11/21/2023 2:40 PM CRANE CHASER Inhaled Oxygen Concentration - - Weight 131.5 kg (290 lb) 11/18/2023 7:28 AM CRANE CHASER Height 190.5 cm (6' 3) 11/18/2023 7:28 AM CRANE CHASER Body Mass Index 36.25 11/18/2023 7:28 AM CRANE CHASER Plan of Treatment Health Maintenance Due Date Last Done Comments Colon Cancer Screening-Colonoscopy 1972 Depression Screening 1972 Hepatitis C Screening 1972 Prostate Cancer Screening-PSA 1972 Hepatitis B Screening 1990 Regular Well Visit/Exam 18-64 1990 Zoster Vaccine (1 of 2) 2022 Covid-19 Vaccine (2023-2 5 season) 2024 09/26/2021, 09/03/2021 Influenza Vaccine (Season Ended) 2025 DTaP/Tdap/Td Vaccine (2 - Td or Tdap) 02/17/2027 02/17/2017 Pneumococcal vaccine <65 Aged Out No longer eligible based on patient's age to complete this topic Medical Devices Implanted Type Area Drapery Hemmer Automatic Device Identifier Shelf Expiration Date Model / Serial / Lot newScale Eduardo Contour 6fr 28cm Taper Tip Bladder Faisal Low Profile Large Inner Latex Free 180-224 - [id number] Implanted:Qty: 1 on 11/20/2023 by Naseem Davis MD at [facility] [employer] Eduardo 08/24/2026 [id number] / / [id number] [employer] Amplatz Rb 8.5fr 28cm 6 Sideport Introducer Catheter String [id number] - [id number] Implanted:Qty: 1 on 11/21/2023 at [facility] [employer] 09/29/2026 [id number] / / [id number] Insurance [facility] CHOICE PLUS Advance Directives For more information, please contact: [phone] * Full Code (Latest Code Status on File) Date Activated Date Inactivated Comments 11/18/2023 4:47 PM 11/21/2023 11:04 PM Care Teams Integrated Campaign Manager Relationship Specialty Start Date End Date Lolis Canela MD PCP - General Family Medicine 02/04/22 Naseem Davis MD [address] [facility] [address] [place] [address] Consulting Physician Urology 11/21/23
== END 2025-05-02 08:25 | disposition home or self-care (01) ==
PROVIDERS: PCP Family Medicine; Visit Provider Urology
DX: N20.0 Calculus of kidney (principal)
CPT/HCPCS: 74018

== ENCOUNTER 2025-06-08 07:18 | Outpatient (CLI) | payer OTHER, SELFPAY ==
--- NOTE | ~2025-06-08 | XR_ITS ---
EXAM/PROCEDURE: XR abdomen/kub 1V - 06/08/2025 7:30 CDT HISTORY: 54 years old Male with CALCULUS OF KIDNEY COMPARISON: None available. TECHNIQUE: AP view(s) of the abdomen. FINDINGS: The bowel gas pattern is normal. There is no evidence for obstruction. No radiopaque calculus seen. No free intraperitoneal air is identified on this supine radiograph. The visualized soft tissue shadows are unremarkable. No gross bony abnormalities are seen. Visualized portions of lung bases are clear. Cholecystectomy clips are seen. Coils are seen in the le ft upper quadrant. IMPRESSION: No radiopaque calculus seen. Reviewed, dictated and finalized at location A.
--- OUTSIDE RECORDS SUMMARY | 2025-06-08 07:22 | XMS_ITS | Clinical Summary ---
Author Organization [facility] Address [address] [place] [address] Care Team Providers Care Labor Custodian Name Role Phone Unavailable Primary Care Provider Unavailabl e Social History Tobacco Use Types Packs/Day Years Used Date Smoking Tobacco: Never Assessed Sex and Gender Information Value Date Recorded Sex Assigned at Not on file Legal Sex Male 12:48 PM COFFEE SHOP AIDE Gender Identity Not on file Sexual Orientation [...] (1 of 2) 2022 INFLUENZA VACCINE (#1) 2025
--- OUTSIDE RECORDS SUMMARY | 2025-06-08 07:22 | XMS_ITS | Clinical Summary ---
Author Organization [facility] Address [address] [place] [address] Care Team Providers Care Machine Stapler Name Role Phone Lolis Canela MD Primary Care Provider [phone] Naseem Davis MD Unavailable [phone] Allergies No known active allergies Medications [...] on file Legal Sex Male 10:08 PM ANALYTICAL STRATEGIST Gender Identity Not on file Sexual Orientation Not on file Obstetrics History Last Filed Vital Signs Vital Sign Reading Time Taken Comments Blood Pressure 134/74 11/21/2023 2:40 PM ANALYTICAL STRATEGIST Pulse 84 11/21/2023 2:40 PM ANALYTICAL STRATEGIST Temperature 36.7 C (98.1 F) 11/21/2023 2:40 PM ANALYTICAL STRATEGIST Respiratory Rate 17 11/21/2023 2:40 PM ANALYTICAL STRATEGIST Oxygen Saturation 95% 11/21/2023 2:40 PM ANALYTICAL STRATEGIST Inhaled Oxygen Concentration - - Weight 131.5 kg (290 lb) 11/18/2023 7:28 AM ANALYTICAL STRATEGIST Height 190.5 cm (6' 3) 11/18/2023 7:28 AM ANALYTICAL STRATEGIST Body Mass Index 36.25 11/18/2023 7:28 AM ANALYTICAL STRATEGIST Plan of Treatment Health Maintenance Due Date [...] this topic Medical Devices Implanted Type Area Filler In Device Identifier Shelf Expiration Date Model / Serial / Lot [employer] Eduardo Contour 6fr 28cm Taper Tip Bladder Faisal Low Profile Large Inner Latex Free 180-224 - [id number] Implanted:Qty: 1 on 11/20/2023 by Naseem Davis MD at [facility] [employer] Eduardo 08/24/2026 [id number] / / [id number] [employer] Amplatz Rb 8.5fr 28cm 6 Sideport Introducer Catheter String [id number] - [id number] Implanted:Qty: 1 on 11/21/2023 at [facility] [employer] 09/29/2026 [id number] / / [id number] Insurance [facility] Address: [address] [address] [facility] Address: [place] [address] [facility] CHOICE PLUS [facility] Address: [place] [address] Advance Directives For more information, please contact: [phone] * Full Code (Latest Code Status on File) Date Activated Date Inactivated Comments 11/18/2023 4:47 PM 11/21/2023 11:04 PM Care Teams Machine Stapler Relationship Specialty Start Date End Date Lolis Canela MD PCP - General Family Medicine 02/04/22 Naseem Davis MD [address] [facility] [address] [place] [address] Consulting Physician Urology 11/21/23
--- OUTSIDE RECORDS SUMMARY | 2025-06-08 07:23 | XMS_ITS | Data Portability ---
Author Organization [place] - [place] [employer] [facility], Main Office Address [address] [place] [address] Care Team Providers Care Retail Selling Floor Leader Name Role Phone WOLF ORELLANA Primary Care Provider WOLF ORELLANA Referring Provider Assessment Encounter Date Assessment Date Assessment LastModified by Organization Details LastModified Time 04/05/2024 04/05/2024 By x-ray and excira m the patient is noted to have moderate [...] contact patient to schedule [email or web address] [facility], [address] [place], [address], 5 13:58:36 Procedures injection/a spiration joint/bursa (PROC) 2024 025 [email or web address] In-Office Order, Internal Use Only DO Not Attach Compendium DO Not Attach Compendium, Do Not Delete/merge, [id number] 10:56:32 injection/a spiration joint/bursa (PROC) 2023 024 [email or web address] In-Office Order, Internal Use Only DO Not Attach Compendium DO Not Attach Compendium, Do Not Delete/merge, [id number] 4 11:08:10 Surgeries None recorded. Imaging XR, hip + pelvis, bilateral 2024 025 [facility] [place], [address], [place], [address], 5 11:46:00 XR, knee 2023 024 [facility] [place], [address], [place], [address], 4 13:04:34 Medication Orders prednisone 10 mg tablets in a dose pack 2024 025 [id number], [address] [place], [address], 5 11:46:00 bupivacaine HCl 0.5 % (5 mg/mL) injection solution 2024 025 [email or web address] [id number], [address] [place], [address], 5 11:46:00 Kenalog 10 mg/mL suspension for injection 2024 025 [place] [address] [id number], [address] [place], [address], 5 11:46:00 bupivacaine HCl 0.5 % (5 mg/mL) injection solution 2023 024 [place] [address] [id number], [address] [place], [address], 4 13:04:34 Kenalog 10 mg/mL suspension for injection 2023 024 [facility][id number], [address] [place], [address], 4 13:04:34 celecoxib 200 mg capsule [address][id number], [address] [place], [address], 4 13:04:34 Patient TargetsNo targets recorded. Patient InstructionsNo instructions recorded. Reason for Referral Physical Therapist Referral for Bilateral trochanteric bursitis please contact patient to schedule Referring Physician: Jamel Woodward, Orthopedic Surgery, Encounter Date: 12/17/2024 Results Created Date Observation Date Name Description Value Unit Range Abnormal Flag Note LastModifiedBy Organization Detail LastModifiedTime 05/14/20 21 XR, knee, 3 view No observ ation record ed. [id number] [facility] [place] [address], [place], [address], 01/29/2023 12:48:50 04/05/20 24 XR, knee No observ ation record ed. [facility] [place] [address], [place], [address], 04/05/2024 13:01:12 12/17/19 25 XR, hip + pelvi s, bilat eral No observ ation record ed. [facility] [place] [address], [place], [address], 12/17/2024 11:10:06 Result Notes None recorded. Problems Name Problem SNOMED Code Status Onset Date Resolution Date Notes Provider Name and Address Organization Details Recorded Time Osteoarthr itis 129062007 Active Not Available [facility] 3 12:45:53 Pain of bilateral knee joints 8416090208790 04 Active 2023 KARTIK Trinidad, [facility] This Week In 4 10:30:10 Bilateral osteoarthr itis of knees 8458238448286 07 Active 2023 OLGA Keyes [address], [place], [address] , [facility] 4 13:02:57 Chondrocal cinosis of joint of right knee 1357060490628 107 Active 2023 OLGA Keyes [address], [address], [place], [address] , [facility] 4 13:03:04 Chondrocal cinosis of joint of left knee 4830105724002 101 Active 2023 OLGA Keyes [address] [facility] [address], [place], [address] , [facility] 4 13:03:11 Pain of bilateral hip joints 5074262982100 9100 Active 2024 ROQUE Pinto, [facility] 5 10:26:20 Bilateral trochanter ic bursitis 2146853963652 9109 Active 2024 Catalina yanez, [facility] 5 10:53:22 Problem Notes None recorded. Procedures Surgical History Date Name Laterality Status Provider Name and Address Organization Details Recorded Time Knee Surgery completed Not Available [facility] 01/29/2023 12:45:14 Hernia Repair completed KARTIK Trinidad [facility] 04/05/2024 10:28:37 Gallbladder Surgery completed KARTIK Trinidad [facility] 04/05/2024 10:28:44 Imaging Results None recorded. Procedure [...] 40 mg by injection route. 2024 active [facility]: 0003- 0494- 20 Not Available Not [...] administe red by the provider 05/14 completed [facility]: 0409- 4276- 17 Not Available Not [...] Updated DateTime 12/17/2024 190.5 cm 35 kg/m2 473087.86 g Veronica Camacho CNA [place] [employer] [facility] 12/17/2024 10:25:28 Date Recorded Body height Body mass index (BMI) Body weight Provider Name and Address Organization Details Last Updated DateTime 01/28/2025 190.5 cm 33.1 kg/m2 433062.98 g Veronica Camacho CNA [place] [employer] [facility] [employer] 01/28/2025 10:43:36 Date Recorded Body height Body mass index (BMI) Body weight Provider Name and Address Organization Details Last Updated DateTime 04/05/2024 190.5 cm 35 kg/m2 196978.86 g KARTIK Trinidad [employer] [facility] [employer] 04/05/2024 10:27:38 Date Recorded Body mass index (BMI) Body height Body weight Provider Name and Address Organization Details Last Updated DateTime 05/14/2021 36 kg/m2 190.5 cm 402277.6 g Not Available [employer] 01/29/2023 12:45:17 Date Recorded Body height Body mass index (BMI) Body weight Provider Name and Address Organization Details Last Updated DateTime 05/18/2024 190.5 cm 34.4 kg/m2 083440.9 g Veronica Camacho [facility] [employer] [facility] [employer] 05/18/2024 14:25:13 Social History Question Answer Notes LastModified by [employer] Details LastModified Time How Much Tobacco Do You Smoke? No [id number] Information not available 01/29/2023 Sex: Unknown Functional Status None recorded. Mental Status None recorded. Family History Relationship Description Onset Age of this Age Resolved Age Notes LastModified by Organization Details LastModified Time Maternal Grandmother Family history of malignant neoplasm [id number] Not available 01/29/2023 12:45:14 Father Diabetes mellitus [id number] Not available 01/29/2023 12:45:14 Medical History Condition Response DIABETES, TYPE Y URINARY/BLADDER/KIDNEY PROBLEMS Y Past Encounters Encounter ID Performer Location Encounter Start Date Encounter Closed Date Diagnosis/Indication Diagnosis SNOMED-CT Code Diagnosis ICD10 Code Diagnosis Note [id number] Praveen Diane MD [facility] [place] [address] [place] [address] 05/14/2021 00:00:00 05/14/2021 16:52:56 [id number] Bryant Edward MD [facility] [place] [address] [place] [address] 04/05/2024 10:10:35 04/05/2024 11:18:51 Pain of bilateral knee joints 1481946830 65500 M25.561 M25.562 Bilateral osteoarthritis of knees 7029485195 81883 M17.0 Chondrocal cinosis of joint of right knee 6267208234 746747 M11.261 Chondrocal cinosis of joint of left knee 3268510845 691957 M11.018 [id number] Bryant Edward MD [facility] [place] [address] [place] [address] 05/18/2024 14:20:31 05/18/2024 14:40:31 Bilateral osteoarthritis of knees 8363888777 49612 M17.0 Chondrocal cinosis of joint of right knee 4169376713 026407 M11.261 Chondrocal cinosis of joint of left knee 0678587043 054432 M11.262 Pain of bi lateral knee joints 2854751753 47203 M25.561 M25.913 [id number] Bryant Edward MD [facility] [place] [address] [place] [address] 12/17/2024 10:19:45 12/17/2024 10:57:57 Pain of bilateral hip joints 5442887428 2222050 M25.551 M25.552 Bilateral trochanteric bursitis 8698407741 5089301 M70.61 M70.62 [id number] Bryant Edward MD [facility] [place] [address] [place] [address] 01/28/2025 10:29:44 01/28/2025 11:19:34 Bilateral trochanteric bursitis 8848798107 4885807 M70.61 M70.62 Pain of bi lateral hip joints 4110670343 5364065 M25.551 M25.552 Health Concerns Section Related Observation LastModified by Organization Detai ls LastModified Time None Recorded Concern Status LastModified by Organization Details LastModified Time None Recorded Advance Directives Directive None Recorded Payers Insurance Date Sequence Insurance Name Policy Number Policy Patel Covered Member ID Patel Member ID Guarantor Name 01/30/2025 1 [facility] [id number] Juarez Calderon [id number] Jayson Calderon Notes Date Note Type Note [...] today with the patient. OLGA Keyes [address] [facility] [facility] [address], [place], [address], [facility] [place] [employer] 04/05/2024 13:04:13 05/18/2024 text/html Patient returns for [...] the future if necessary. OLGA Keyes [address], [facility] [address], [place], [address], [employer] 05/18/2024 14:46:55 12/17/2024 text/html The patient retu [...] denies any changes. OLGA Keyes [address], [place], [address], [employer] 12/17/2024 11:10:25 01/28/2025 text/html The patient retu [...] necessary and for recheck. OLGA Keyes [address] [facility], [facility] [address], [place], [address], [place] [facility] 01/28/2025 11:08:15
--- OUTSIDE RECORDS SUMMARY | 2025-06-08 07:23 | XMS_ITS | Clinical Summary ---
Author Organization [facility] Yasemin paredes Address [address] [place] [address] Phone Care Team Providers Care Station Mechanic Apprentice Name Role Phone Lolis Canela MD Primary Care Provider [phone] Allergies No known active allergies Medications ARIPiprazole [...] Comments Blood Pressure 120/70 12/13/2020 10:34 AM SLATE M[employer]ER Pulse - - Temperature 36.9 C (98.4 F) 12/13/2020 10:34 AM SLATE MIXER Respiratory Rate 18 12/13/2020 10:34 AM SLATE MIXER Oxygen Saturation - - Inhaled Oxygen Concentration - - Weight 130 kg (287 lb) 12/13/2020 10:34 AM SLATE MIXER Height 190.5 cm (6' 3) 12/13/2020 10:34 AM SLATE M[employer]ER Body Mass Index 35.87 12/13/2020 10:34 AM SLATE MIXER Plan of Treatment Health Maintenance Due Date Last Done Comments Influenza Vaccine (#1) 2025 Insurance [facility] Care Teams Station Mechanic Apprentice Relationship Specialty Start Date End Date Lolis Canela MD [address] [place] [address] PCP - General Internal Medicine 08/21/20
--- OUTSIDE RECORDS SUMMARY | 2025-06-08 07:23 | XMS_ITS | Referral Summary ---
Author Organization [facility] Address [address] [place] [address] Care Team Providers Care Plastic Tile Layer Name Role Phone Lolis Canela MD Primary Care Provider [phone] Naseem Davis MD Unavailable [phone] Allergies No known active allergies Medications [...] on file Legal Sex Male 10:08 PM ALMOND BLANCHER Gender Identity Not on file Sexual Orientation Not on file Last Filed Vital Signs Vital Sign Reading Time Taken Comments Blood Pressure 134/74 11/21/2023 2:40 PM ALMOND BLANCHER Pulse 84 11/21/2023 2:40 PM ALMOND BLANCHER Temperature 36.7 C (98.1 F) 11/21/2023 2:40 PM ALMOND BLANCHER Respiratory Rate 17 11/21/2023 2:40 PM ALMOND BLANCHER Oxygen Saturation 95% 11/21/2023 2:40 PM ALMOND BLANCHER Inhaled Oxygen Concentration - - Weight 131.5 kg (290 lb) 11/18/2023 7:28 AM ALMOND BLANCHER Height 190.5 cm (6' 3) 11/18/2023 7:28 AM ALMOND BLANCHER Body Mass Index 36.25 11/18/2023 7:28 AM ALMOND BLANCHER Plan of Treatment Not on file Medical Devices Implanted Type Area Review Analyst Device Identifier Shelf Expiration Date Model / Serial / Lot [employer] Eduardo Contour 6fr 28cm Taper Tip Bladder Faisal Low Profile Large Inner Latex Free 180-224 - [id number] Implanted:Qty: 1 on 11/20/2023 by Naseem Davis MD at [facility] [employer] Eduardo 08/24/2026 [id number] / / [id number] [employer] Amplatz Rb 8.5fr 28cm 6 Sideport Introducer Catheter String [id number] - [id number] Implanted:Qty: 1 on 11/21/2023 at [facility] [employer] 09/29/2026 [id number] / / [id number] Insurance Advance Directives For more information, please contact: [phone] * Full Code (Latest Code Status on File) Date Activated Date Inactivated Comments 11/18/2023 4:47 PM 11/21/2023 11:04 PM Care Teams Plastic Tile Layer Relationship Specialty Start Date End Date Lolis Canela MD PCP - General Family Medicine 02/04/22 Naseem Davis MD [address] [facility] [address] [place] [address] Consulting Physician Urology 11/21/23
--- OUTSIDE RECORDS SUMMARY | 2025-06-08 07:23 | XMS_ITS | Encounter Summary ---
Author Organization [employer] Address [address] [place] [address] Care Team Providers Care Aircraft Motor Mechanic Name Role Phone Unavailable Primary Care Provider Unavailabl e Encounter Details Date Type Department Care Team (Late st Contact Info) Description 01/30/2021 Lab Requisition [facility] Imaging Services [facility] [address] [place] [address] [place] [address] [facility] [address] [place] [address] Encounter for pre-employment examination Social History Tobacco Use Types Packs/Day Years Used Date Smoking Tobacco: Never Assessed Sex and Gender Information Value Date Recorded Sex Assigned at Not on file Legal Sex Male 12:48 PM LOTTERY SALES CLERK Gender Identity Not on file Sexual Orientation Not on file documented as of this encounter Plan of Treatment Not on file documented as of this encounter Procedures Procedure Name Priority Date/Time Associated Diagnosis Comments CBC WITH DIFFERENTIAL Routine 01/30/2021 8:30 AM LOTTERY SALES CLERK Encounter for pre-employment examination HEMOGLOBIN A1C Routine 01/30/2021 8:30 AM LOTTERY SALES CLERK Encounter for pre-employment examination LIPID PANEL Routine 01/30/2021 8:30 AM LOTTERY SALES CLERK Encounter for pre-employment examination COMPREHENSIVE METABOLIC PANEL Routine 01/30/2021 8:30 AM LOTTERY SALES CLERK Encounter for pre-employment examination documented in this encounter Results * (ABNORMAL) HEMOGLOBIN A1C (01/30/2021 8:30 AM LOTTERY SALES CLERK) HEMOGLOBIN A1C 6.0(H) <=5.6 % 01/30/2021 2:52 PM LOTTERY SALES CLERK [facility] EST. AVG GLUCOSE, A1C 126 mg/dL 01/30/2021 2:52 PM [facility] Blood BLOOD SPECIMEN / Unknown Collection / Unknown 01/30/2021 8:30 AM LOTTERY SALES CLERK 01/30/2021 1:08 PM LOTTERY SALES CLERK [facility] - 01/30/2021 2:52 PM LOTTERY SALES CLERK HGB A1C INTERPRETATION NORMAL: <5.7% PRE-DIABETES: 5.7 - 6.4% DIABETES: 6.5% OR GREATER Praveen Barber MD CHEMISTRY ORDERABLES Final R esult [facility] CLIA# [id number] [place] [address] * (ABNORMAL) CBC WITH DIFFERENTIAL (01/30/2021 8:30 AM LOTTERY SALES CLERK) Pathologist [facility] WBC 8.3 4.5 - 10.5 K/uL 01/30/2021 2:31 PM [facility] RBC 4.80 4.50 - 5.40 M/uL 01/30/2021 2:31 PM [facility] HEMOGLOBIN 14.1 13.6 - 16.5 g/dL 01/30/2021 2:31 PM [facility] HEMATOCRIT 41.4 40.0 - 48.0 % 01/30/2021 2:31 PM [facility] MCV 86.4 82.0 - 99.0 fL 01/30/2021 2:31 PM [facility] MCH 29.3 27.8 - 34.5 pg 01/30/2021 2:31 PM [facility] MCHC 33.9 32.5 - 35.5 g/dL 01/30/2021 2:31 PM [facility] RDW 14.7(H) 11.5 - 14.5 % 01/30/2021 2:31 PM [facility] PLATELETS 325 160 - 420 K/uL 01/30/2021 2:31 PM [facility] [employer] MPV 8.2(L) 8.7 - 12.7 fL 01/30/2021 2:31 PM [facility] NEUTROPHILS 65 45 - 70 % 01/30/2021 2:31 PM [facility] LYMPHOCYTES 24 16 - 45 % 01/30/2021 2:31 PM [facility] MONOCYTES 7 3 - 13 % 01/30/2021 2:31 PM [facility] EOSINOPHILS 3 0 - 7 % 01/30/2021 2:31 PM [facility] BASOPHILS 1 0 - 2 % 01/30/2021 2:31 PM [facility] NEUTROPHIL ABSOLUTE 5.40 1.90 - 7.00 K/uL 01/30/2021 2:31 PM [facility] LYMPHOCYTE ABSOLUTE 2.00 0.70 - 4.50 K/uL 01/30/2021 2:31 PM [facility] MONOCYTE ABSOLUTE 0.60 0.10 - 1.30 K/uL 01/30/2021 2:31 PM [facility] EOSINOPHIL ABSOLUTE 0.30 0.00 - 0.70 K/uL 01/30/2021 2:31 PM [facility] BASOPHILS ABSOLUTE 0.00 0.00 - 0.20 K/uL 01/30/2021 2:31 PM [facility] Blood BLOOD SPECIMEN / Unknown Collection / Unknown 01/30/2021 8:30 AM LOTTERY SALES CLERK 01/30/2021 1:04 PM LOTTERY SALES CLERK us Praveen Barber MD HEMATOLOGY ORDERABLES Final Result [facility] CLIA# [id number] [address] [place] [address] * (ABNORMAL) LIPID PANEL (01/30/2021 8:30 AM LOTTERY SALES CLERK) CHOLESTEROL 178 <200 mg/dL 01/30/2021 3:08 PM LOTTERY SALES CLERK [facility] TRIGLYCERIDE 115 <150 mg/dL 01/30/2021 3:08 PM [facility] HDL 33(L) 40 - 59 mg/dL 01/30/2021 3:08 PM [facility] LDL CALCULATED 122(H) <100 mg/dL 01/30/2021 3:08 PM [facility] NON-HDL CHOLESTEROL 145(H) <130 mg/dL 01/30/2021 3:08 PM [facility] Blood BLOOD SPECIMEN / Unknown Venipuncture / Unknown 01/30/2021 8:30 AM LOTTERY SALES CLERK 01/30/2021 1:06 PM [facility] - 01/30/2021 3:08 PM LOTTERY SALES CLERK TOTAL CHOLESTEROL mg/dL Desirable <200 Borderline high [...] Barber MD CHEMISTRY ORDERABLES Final R esult [facility] CLIA# [id number] [address] [place] [address] * (ABNORMAL) COMPREHENSIVE METABOLIC PANEL (01/30/2021 8:30 AM LOTTERY SALES CLERK) SODIUM 143 136 - 145 mmol/L 01/30/2021 3:08 PM [facility] POTASSIUM 4.5 3.4 - 5.1 mmol/L 01/30/2021 3:08 PM [facility] CHLORIDE 103 98 - 107 mmol/L 01/30/2021 3:08 PM [facility] CO2 29 22 - 29 mmol/L 01/30/2021 3:08 PM [facility] CALCIUM 10.1 8.6 - 10.4 mg/dL 01/30/2021 3:08 PM [facility] BUN 14 6 - 20 mg/dL 01/30/2021 3:08 PM [facility] CREATININE 0.86 0.67 - 1.17 mg/dL 01/30/2021 3:08 PM [facility] GLUCOSE 127(H) 74 - 99 mg/dL 01/30/2021 3:08 PM [facility] TOTAL PROTEIN 7.8 6.3 - 8.7 g/dL 01/30/2021 3:08 PM [facility] ALBUMIN 4.6 3.5 - 5.2 g/dL 01/30/2021 3:08 PM [facility] BILIRUBIN TOTAL 0.5 0.2 - 1.3 mg/dL 01/30/2021 3:08 PM [facility] ALKALINE PHOSPHATASE 105 40 - 150 U/L 01/30/2021 3:08 PM [facility] AST 23 0 - 41 U/L 01/30/2021 3:08 PM [facility] ALT 26 0 - 41 U/L 01/30/2021 3:08 PM [facility] GFR >60 >=60 mL/min/1.7 3 sq meter 01/30/2021 3:08 PM [facility] Comment: eGFR has not been validated for [...] mL/min/1.7 3 sq meter 01/30/2021 3:08 PM LOTTERY SALES CLERK [facility] ANION GAP 11 8 - 16 mmol/L 01/30/2021 3:08 PM LOTTERY SALES CLERK [facility] Blood BLOOD SPECIMEN / Unknown Venipuncture / Unknown 01/30/2021 8:30 AM LOTTERY SALES CLERK 01/30/2021 1:06 PM LOTTERY SALES CLERK us Praveen Barber MD CHEMISTRY ORDERABLES Final R esult [facility] [employer] CLIA# [id number] [address] [place] [address] documented in this encounter Visit Diagnoses Diagnosis Encounter for pre-employment examination Health examination of defined subpopulation documented in this encounter
== END 2025-06-08 07:19 | disposition home or self-care (01) ==
PROVIDERS: PCP Family Medicine; Visit Provider Urology
DX: N20.0 Calculus of kidney (principal)
CPT/HCPCS: 74018